=== PATIENT | male | born 1955 | race Caucasian/White ===

== ENCOUNTER 2022-06-12 09:08 | Outpatient (CLI) | payer OTHER, SELFPAY ==
[2022-06-12 14:23] LABS: Chloride* 103 mmol/L (96-114); Sodium* 139 mmol/L (135-149)
[2022-06-12 14:24] LABS: Potassium* 5.3 mmol/L (3.6-5.1)
[2022-06-12 14:26] LABS: Carbon Dioxide* 30 mmol/L (20-32); Creatinine* 0.9 mg/dL (0.5-1.5); Estimated Glomerular Filt Rate 95 ml/min
[2022-06-12 14:27] LABS: Blood Urea Nitrogen* 11 mg/dL (7-30); Calcium* 9.2 mg/dL (8.4-10.6); Glucose* 108 mg/dL (60-115)
== END 2022-06-12 09:09 | disposition home or self-care (01) ==
LOC: LONREF 09:09
PROVIDERS: PCP Family Medicine; Visit Provider Family Medicine
DX: I10 Essential (primary) hypertension (principal)
CPT/HCPCS: 80048

== ENCOUNTER 2023-05-15 09:19 | Outpatient (CLI) | payer OTHER, SELFPAY ==
--- NOTE | 2023-05-15 10:53 | W.ANESCHARGE ---
Anesthesia Charges Start Date/Time Anesthesia Start Date: 05/15/23 Anesthesia Start Time: 10:24 Stop Date/Time Anesthesia Stop Date: 05/15/23 Anesthesia Stop Time: 10:52
== END 2023-05-15 09:20 | disposition home or self-care (01) ==
PROVIDERS: PCP Family Medicine; Visit Provider Internal Medicine
DX: Z12.11 Encounter for screening for malignant neoplasm of colon (principal); K63.5 Polyp of colon
CPT/HCPCS: 00811; 45385; 88305; J2704

== ENCOUNTER 2023-06-23 08:11 | Outpatient (CLI) | payer OTHER, SELFPAY | END 2023-06-23 08:12 | disposition home or self-care (01) | PROVIDERS: PCP Family Medicine; Visit Provider Family Medicine | DX: Z00.00 Encounter for general adult medical examination without abnormal findings (principal); I10 Essential (primary) hypertension; E78.5 Hyperlipidemia, unspecified; E66.9 Obesity, unspecified; E88.810 Metabolic syndrome; Z12.5 Encounter for screening for malignant neoplasm of prostate | CPT/HCPCS: 80053; 80061; 84153 ==

== ENCOUNTER 2024-04-20 06:24 | Inpatient (IN) | payer OTHER, SELFPAY ==
--- NOTE | 2024-04-20 06:33 | CRLHL7_ITS ---
For Patients: As a result of the Century Cures Act, medical imaging exams and procedure reports are released immediately into your electronic medical record. You may view this report before your referring provider. If you have questions, please contact your health care provider. Indication: Dyspnea. Technique: One view(s) of the chest. Comparison: None available. Findings: Mildly enlarged cardiomediastinal silhouette. Pulmonary vasculature is unremarkable. Lungs are well inflated. Possible hazy opacity within the medial right lung base. No pleural effusion or pneumothorax. No acute osseous abnormality identified. Impression: Mild cardiomegaly. Possible hazy airspace opacities in the medial right lung base may be artifactual secondary to technique versus atelectasis or developing pneumonia. Dictated by Audrey Lee MD @ 04/20/2024 7:10:51 AM (Electronically Signed)
[2024-04-20] MEDS: IPRAT-ALBUT 0.5-2.5 MG/3 ML NEB 1 NEB IH (06:35)
--- NOTE | 2024-04-20 06:35 | ED.GENADULT ---
HPI - General Adult General Time Seen by Provider: 06:35 <Ren Romero MD - Last Filed: 04/20/24 07:55> Date Seen: 04/20/24 <Ren Romero MD - Last Filed: 04/20/24 07:55> Chief complaint: Shortness of Breath/Dyspnea <Ren Romero MD - Last Filed: 04/20/24 07:55> Stated complaint: Hard time breathing <Ren Romero MD - Last Filed: 04/20/24 07:55> Time Seen by Provider: 04/20/24 06:29 <Ren Romero MD - Last Filed: 04/20/24 07:55> Source: patient, family, RN notes reviewed and old records reviewed <Ren Romero MD - Last Filed: 04/20/24 07:55> Mode of arrival: ambulatory <Ren Romero MD - Last Filed: 04/20/24 07:55> Limitations: no limitations <Ren Romero MD - Last Filed: 04/20/24 07:55> History of Present Illness HPI narrative: 69-year-old male who comes in with shortness of breath. Patient notes some nasal congestion for couple of days, went to bed last night feeling okay but woke up this morning with shortness of breath. Slight cough. Denies chest pain, nausea, vomiting. Some mild ankle swelling which he says is chronic for him. Has not taken anything for this. Denies smoking. <Ren Romero MD - Last Filed: 04/20/24 07:55> Related Data Home medications: Home Medications ?Medication ?Instructions ?Recorded ?Confirmed metformin 750 mg tablet,extended 1,500 mg PO HS 04/20/24 04/20/24 release 24 hr Previous Rx's ?Medication ?Instructions ?Recorded furosemide 20 mg tablet 20 - 40 mg (1 - 2 x 20 mg) PO 06/23/23 DAILY #180 tabs lisinopril 20 mg tablet 20 mg PO DAILY #90 tabs 06/23/23 <Ren Romero MD - Last Filed: 04/20/24 07:55> Allergies/adverse reactions: Allergies Allergy/AdvReac Type Severity Reaction Status Date / Time No Known Drug Allergies Allergy Verified 09/26/23 11:25 <Ren Romero MD - Last Filed: 04/20/24 07:55> [facility] Medical History: Medical History (Updated 04/20/24 @ 10:54 by Renea Hester MD) Family history of ASCVD ?Z82.49 - Family history of ischemic heart disease and other diseases of the circulatory system (ICD-10) Right knee DJD ?M17.11 - Unilateral primary osteoarthritis, right knee (ICD-10) Varicose veins of lower extremity (04/17/12) ?I83.90 - Asymptomatic varicose veins of unspecified lower extremity (ICD-10) Dyslipidemia ?E78.5 - Hyperlipidemia, unspecified (ICD-10) Obesity (04/17/12) ?E66.9 - Obesity, unspecified (ICD-10) Metabolic syndrome ?E88.81 - Metabolic syndrome (ICD-10) <Ren Romero MD - Last Filed: 04/20/24 07:55> Surgical History: Surgical History H/O varicose vein ligation and stripping ?Z98.890 - Other specified postprocedural states (ICD-10) Status post arthroscopy of right knee (04/17/12) ?Z98.890 - Other specified postprocedural states (ICD-10) <Ren Romero MD - Last Filed: 04/20/24 07:55> Social History: Social History Smoking Status: Never smoker Little interest or pleasure in doing things: not at all Feeling down, depressed, or hopeless: not at all <Ren Romero MD - Last Filed: 04/20/24 07:55> Exam Narrative: Exam Narrative: General: Well-developed and well-nourished, no acute distress Head: Atraumatic and normocephalic Eyes: Pupils are equal reactive, extraocular motions intact, conjunctiva clear ENT: External nose and ears are normal, posterior pharynx without erythema or exudate Neck: No midline cervical tenderness, full spontaneous range of motion the neck, trachea midline, no adenopathy Heart: Tachycardic and irregular Lungs: Tachypnea with increased work of breathing, prolonged expiratory phase, poor air movement throughout Abdomen: Soft, nontender, nondistended with active bowel sounds Musculoskeletal: Trace bilateral lower extremity edema Neurologic: Awake, alert, and oriented x3, no gross focal neurologic deficits, cranial nerves intact as tested Psych: Mood and affect are appropriate Skin: No rashes <Ren Romero MD - Last Filed: 04/20/24 07:55> Const: Vital Signs, click to edit/add: Vital Signs - 24 hr 04/20/24 07:00 Temperature 98.0 F Pulse Rate [Pulse Oximeter] 132 H Respiratory Rate 32 H Blood Pressure [Ri ght Upper Arm] 153/85 H Pulse Oximetry 83 L Oxygen Delivery Me thod Room Air <Ren Romero MD - Last Filed: 04/20/24 07:55> Vital Signs, click to edit/add: Vital Signs - 24 hr 04/20/24 07:00 Temperature 98.0 F Pulse Rate [Pulse Oximeter] 132 H Respiratory Rate 32 H Blood Pressure [Ri ght Upper Arm] 153/85 H Pulse Oximetry 83 L Oxygen Delivery Me thod Room Air <Genevieve Melton MD - Last Filed: 04/20/24 11:28> Course Course ED Course: Patient seen and examined immediately on arrival, presents with shortness of breath. On initial evaluation, tachypnea with prolonged expiratory phase, poor air movement, no wheezes or crackles. Labs ordered along with DuoNeb, patient was placed on BiPAP. Symptoms are likely related to acute bronchitis, consider also pneumonia, heart failure. Did consider pulmonary embolism but patient has poor air movement with diminished breath sounds throughout which is more consistent with a pulmonary problem versus vascular Reviewed prior record and from 09/26/2023 patient was seen in Primary Care, upper respiratory symptoms that time and started on prednisone. <Ren Romero MD - Last Filed: 04/20/24 07:55> Reevaluation(s) Time of Reevaluation #1: 06:58 <Ren Romero MD - Last Filed: 04/20/24 07:55> Reevaluation #1: Patient appears much more comfortable on BiPAP. <Ren Romero MD - Last Filed: 04/20/24 07:55> Time of Reevaluation #2: 07:23 <Ren Romero MD - Last Filed: 04/20/24 07:55> Reevaluation #2: Labs independently interpreted by me with leukocytosis, white blood cell count 14.6 with hemoglobin 12.6, venous blood gas with pH of 7.335 and pCO2 of 57, likely representing acute on chronic respiratory failure with hypercapnia, there may be a Pickwickian component as well. Chest x-ray independently interpreted by me with questionable of infiltrate in the right lung base, radiology interpretation agrees. CT scan will be done and as D-dimer still pending, CT PE protocol will be performed. EKG independently interpreted by me performed at 6:43 a.m. demonstrates sinus rhythm with occasional PVCs, no acute ST elevations or depressions, rate 92, CT 180, QTC 492. No prior for comparison <Ren Romero MD - Last Filed: 04/20/24 07:55> Time of Reevaluation #3: 07:53 <Ren Romero MD - Last Filed: 04/20/24 07:55> Reevaluation #3: Labs independently interpreted by me with negative respiratory panel, negative D-dimer, BNP 10 40. Patient taken off BiPAP to go to CT scan and for trial off BiPAP. Sign out to oncoming provider <Ren Romero MD - Last Filed: 04/20/24 07:55> Vital Signs Vital signs: Initial Vital Signs Respiratory Effort Labored, Short of Breath, Abdominal Breathing, Tachypnea 04/20/24 06:40 Respiratory Depth Shallow 04/20/24 06:40 Vital Signs Temperature 98.0 F 04/20/24 07:00 Pulse Rate 132 H 04/20/24 07:00 Respiratory Rate 32 H 04/20/24 07:00 Blood Pressure 153/85 H 04/20/24 07:00 Pulse Oximetry 83 L 04/20/24 07:00 Oxygen Delivery Method Room Air 04/20/24 07:00 Temperature 98.0 F 04/20/24 07:00 Pulse Rate 132 H 04/20/24 07:00 Respiratory Rate 32 H 04/20/24 07:00 Blood Pressure 153/85 H 04/20/24 07:00 Pulse Oximetry 83 L 04/20/24 07:00 Oxygen Delivery Method Room Air 04/20/24 07:00 <Ren Romero MD - Last Filed: 04/20/24 07:55> Initial Vital Signs Respiratory Effort Labored, Short of Breath, Abdominal Breathing, Tachypnea 04/20/24 06:40 Respiratory Depth Shallow 04/20/24 06:40 Vital Signs Temperature 98.0 F 04/20/24 07:00 Pulse Rate 132 H 04/20/24 07:00 Respiratory Rate 32 H 04/20/24 07:00 Blood Pressure 153/85 H 04/20/24 07:00 Pulse Oximetry 83 L 04/20/24 07:00 Oxygen Delivery Method Room Air 04/20/24 07:00 Temperature 98.0 F 04/20/24 07:00 Pulse Rate 132 H 04/20/24 07:00 Respiratory Rate 32 H 04/20/24 07:00 Blood Pressure 153/85 H 04/20/24 07:00 Pulse Oximetry 83 L 04/20/24 07:00 Oxygen Delivery Method Room Air 04/20/24 07:00 <Genevieve Melton MD - Last Filed: 04/20/24 11:28> Medications Administered Medications: Discontinued Medications Generic Name Dose Route Start Last Admin Trade Name Freq PRN Reason Stop Dose Admin Albuterol/Ipratropium 1 neb 04/20/24 06:33 04/20/24 06:35 Iprat-Albut 0.5-2.5 Mg/3 Ml [facility] 04/20/24 06:34 1 neb ONCE ONE Administration Dexamethasone 10 mg 04/20/24 06:34 04/20/24 06:45 Dexamethasone 10 Mg/Ml Inj IVP 04/20/24 06:35 10 mg ONCE ONE Administration Furosemide 80 mg 04/20/24 10:29 04/20/24 10:56 Furosemide 10 Mg/Ml Inj IVP 04/20/24 10:30 80 mg ONCE ONE Administration <Ren Romero MD - Last Filed: 04/20/24 07:55> Discontinued Medications Generic Name Dose Route Start Last Admin Trade Name Freq PRN Reason Stop Dose Admin Albuterol/Ipratropium 1 neb 04/20/24 06:33 04/20/24 06:35 Iprat-Albut 0.5-2.5 Mg/3 Ml [facility] 04/20/24 06:34 1 neb ONCE ONE Administration Dexamethasone 10 mg 04/20/24 06:34 04/20/24 06:45 Dexamethasone 10 Mg/Ml Inj IVP 04/20/24 06:35 10 mg ONCE ONE Administration Furosemide 80 mg 04/20/24 10:29 04/20/24 10:56 Furosemide 10 Mg/Ml Inj IVP 04/20/24 10:30 80 mg ONCE ONE Administration <Genevieve Melton MD - Last Filed: 04/20/24 11:28> Medical Decision Making MDM Narrative Medical decision making narrative: I took over care of this patient from Dr. Romero. Patient has returned from the CT scan with O2 sats at rest of 89-90%. He states he is feeling better. Review of his chart notes leukocytosis at 14,000, elevated proBNP of 1070 with no previous values for comparison. Denies a history of heart problems but family history is present in his brothers. Remote history of smoking having quit 20-25 years ago. 1. Hypoxia-Dave is subjectively improved. patient at rest 89-90% with minimal movement causing decrease of O2 sats to 85%. Previous value was 96% on an office visit earlier this year. No reported history of COPD, sleep apnea, recent illness. Patient has tested negative for COVID in there is no evidence of pneumonia or PE noted on the chest CT. Initial troponin negative with 2nd troponin pending at this time. Given elevated Pro BNP patient is given Lasix 80 mg IV. 2. Obesity 3. Dilated left ventricle-no history of stress test, chest pain. Echocardiogram scheduled for 1600 hours today. 4. Disposition-patient initially wish to go home but I strongly advise against this given persisting hypoxia. I did talk to patient about his CT findings as well as the persistent hypoxia. He has changed his mind and will now be staying in the hospital. He is accepted under the care of hospitalist Dr. Hester. Note: Thyroid nodule noted on CT. This is discussed with hospitalist. <Genevieve Melton MD - Last Filed: 04/20/24 11:28> Medical Records Medical records reviewed: Yes I reviewed the patient's medical records <Genevieve Melton MD - Last Filed: 04/20/24 11:28> Lab Data Lab results reviewed: Yes I reviewed the patient's lab results <Genevieve Melton MD - Last Filed: 04/20/24 11:28> Labs: Lab Results 04/20/24 04/20/24 Range/Units 06:33 06:50 WBC 14.16 H (4.50-11.00) K/uL RBC 4.53 (4.30-5.90) m/uL Hgb 12.6 L (13.5-17.5) gm/dL Hct 40.9 (37.0-53.0) % MCV 90 (80-100) fL MCH 28 (26-34) pg MCHC 31 L (32-36) gm/dL RDW Coeff of Dinah 14.8 (11.5-15.5) % Plt Count 265 (140-440) K/uL Neut % (Auto) 71.6 (42.0-72.0) % Lymph % (Auto) 22.2 (20-44) % [place] % (Auto) 4.2 (0.0-11.0) % Eos % (Auto) 1.6 (0.0-7.0) % Baso % (Auto) 0.2 (0.0-3.0) % Neut # (Auto) 10.10 H (1.7-7.0) K/uL Lymph # (Auto) 3.10 H (0.90-2.90) K/uL [place] # (Auto) 0.60 (0.00-0.90) K/UL Eos # (Auto) 0.20 (0.00-0.50) K/uL Baso # (Auto) 0.00 (0.00-0.30) K/uL Abs Immat Gran (auto) 0.00 (0.00-0.30) K/uL Imm/Tot Granulo (auto) 0.2 % D-Dimer Quant (PE/DVT) 0.37 (0.00-0.50) ug/ml VBG pH 7.335 (7.32-7.43) VBG pCO2 57 H (40-50) mmHG VBG pO2 30.8 (25-47) mmHG VBG HCO3 30 H (21-28) mmol/L Sodium 139 (135-149) mmol/L Potassium 4.2 (3.6-5.1) mmol/L Chloride 100 (96-114) mmol/L Carbon Dioxide 29 (20-32) mmol/L Anion Gap 10 (7-15) mEq/L BUN 16 (7-30) mg/dL Creatinine 0.9 (0.5-1.5) mg/dL Estimated Creat Clear 76.35 Estimated GFR 94 ml/min Glucose 129 H (60-115) mg/dL Calcium 9.1 (8.4-10.6) mg/dL Magnesium 1.5 (1.5-2.6) mg/dL NT-Pro-B Natriuret Pep 1070 pg/mL SARS-CoV-2 (PCR) Negative SARS-CoV-2 (Negative) Influenza Type A (PCR) Negative PCR FLU A (Negative) Influenza Type B (PCR) Negative PCR FLU B (Negative) RSV (PCR) Negative PCR RSV (Negative) POC Troponin I 0.01 (0.01-0.04) ng/ml <Ren Romero MD - Last Filed: 04/20/24 07:55> Lab Results 04/20/24 04/20/24 Range/Units 06:33 06:50 WBC 14.16 H (4.50-11.00) K/uL RBC 4.53 (4.30-5.90) m/uL Hgb 12.6 L (13.5-17.5) gm/dL Hct 40.9 (37.0-53.0) % MCV 90 (80-100) fL MCH 28 (26-34) pg MCHC 31 L (32-36) gm/dL RDW Coeff of Dinah 14.8 (11.5-15.5) % Plt Count 265 (140-440) K/uL Neut % (Auto) 71.6 (42.0-72.0) % Lymph % (Auto) 22.2 (20-44) % [place] % (Auto) 4.2 (0.0-11.0) % Eos % (Auto) 1.6 (0.0-7.0) % Baso % (Auto) 0.2 (0.0-3.0) % Neut # (Auto) 10.10 H (1.7-7.0) K/uL Lymph # (Auto) 3.10 H (0.90-2.90) K/uL [place] # (Auto) 0.60 (0.00-0.90) K/UL Eos # (Auto) 0.20 (0.00-0.50) K/uL Baso # (Auto) 0.00 (0.00-0.30) K/uL Abs Immat Gran (auto) 0.00 (0.00-0.30) K/uL Imm/Tot Granulo (auto) 0.2 % D-Dimer Quant (PE/DVT) 0.37 (0.00-0.50) ug/ml VBG pH 7.335 (7.32-7.43) VBG pCO2 57 H (40-50) mmHG VBG pO2 30.8 (25-47) mmHG VBG HCO3 30 H (21-28) mmol/L Sodium 139 (135-149) mmol/L Potassium 4.2 (3.6-5.1) mmol/L Chloride 100 (96-114) mmol/L Carbon Dioxide 29 (20-32) mmol/L Anion Gap 10 (7-15) mEq/L BUN 16 (7-30) mg/dL Creatinine 0.9 (0.5-1.5) mg/dL Estimated Creat Clear 76.35 Estimated GFR 94 ml/min Glucose 129 H (60-115) mg/dL Calcium 9.1 (8.4-10.6) mg/dL Magnesium 1.5 (1.5-2.6) mg/dL NT-Pro-B Natriuret Pep 1070 pg/mL SARS-CoV-2 (PCR) Negative SARS-CoV-2 (Negative) Influenza Type A (PCR) Negative PCR FLU A (Negative) Influenza Type B (PCR) Negative PCR FLU B (Negative) RSV (PCR) Negative PCR RSV (Negative) POC Troponin I 0.01 (0.01-0.04) ng/ml <Genevieve Melton MD - Last Filed: 04/20/24 11:28> Imaging Data CT scan - chest: Attestation: I have reviewed the pertinent imaging results. <Genevieve Melton MD - Last Filed: 04/20/24 11:28> Radiologist's impression: Heart and vasculature: Contrast opacification of the pulmonary arterial tree is adequate. No sign of pulmonary embolism. Thoracic aorta normal in caliber. Prominent coronary atherosclerosis. Left ventricular dilatation. Lungs and pleural: No pleural effusion or pneumothorax. Discoid atelectasis within the right middle lobe. Lymph nodes/mediastinum: Subcentimeter mediastinal lymph nodes. 8 millimeter hypodense nodules in the right lobe of the thyroid. Chest wall: No masses. Upper abdomen: Normal. Bones: Unremarkable for age. IMPRESSION: 1. No evidence of pulmonary embolus. 2. Left ventricular dilatation suggesting left ventricular failure with moderate coronary atherosclerosis. 3. Hypodense 8 millimeter nodule within the right lobe of the thyroid. Follow-up outpatient thyroid ultrasound is suggested for further characterization. <Genevieve Melton MD - Last Filed: 04/20/24 11:28> ECG Data Attestation: I personally reviewed and interpreted this ECG as follows: <Genevieve Melton MD - Last Filed: 04/20/24 11:28> Critical Care Time Critical Care Time Critical Care Time: Yes (Acute hypoxic respiratory failure, BiPAP) Attestation: The patient required my highest level preparedness to intervene emergently and I personally spent this critical care time directly and personally managing the patient. This critical care time included: Obtaining a history; Examining the patient; Pulse oximetry; Ordering and reviewing of studies; Arranging urgent treatment with development of a management plan; Evaluation of patients response to treatment; Frequent reassessment discussions with other providers. This critical care time was performed to assess and manage the high probability of imminent life-threatening deterioration that could result in multiorgan failure. It was exclusive of separate billable procedures and treating other patients and teaching time. <Ren Romero MD - Last Filed: 04/20/24 07:55> Total Critical Care Time in Minutes: 45 <Ren Romero MD - Last Filed: 04/20/24 07:55> Discharge Plan Discharge Clinical Impression: Acute hypoxemic respiratory failure <Ren Romero MD - Last Filed: 04/20/24 07:55> Patient Disposition: Admitted As Observation <Ren Romero MD - Last Filed: 04/20/24 07:55> Condition: Improved <Ren Romero MD - Last Filed: 04/20/24 07:55>
[2024-04-20] MEDS: dexAMETHasone 10 MG/ML inj IVP (06:45)
[2024-04-20 07:00] VITALS: BP 153/85; PULSE 132; RESP 32; TEMP 36.7; O2SAT 83; BMI 46.0
[2024-04-20 07:00] LABS: HCO3 VBG 30 mmol/L (21-28); PCO2 VBG 57 mmHG (40-50); PO2 VBG 30.8 mmHG (25-47); pH VBG 7.335 (7.32-7.43)
[2024-04-20 07:03] LABS: Basophils Percent Auto 0.2 % (0.0-3.0); Eosinophils Percent Auto 1.6 % (0.0-7.0); Hematocrit 40.9 % (37.0-53.0); Hemoglobin* 12.6 gm/dL (13.5-17.5); Immature Granulocytes Pct Auto 0.2 %; Lymphocytes Percent Auto 22.2 % (20-44); Mean Corpuscular HGB Conc 31 gm/dL (32-36); Mean Corpuscular Hemoglobin 28 pg (26-34); Mean Corpuscular Volume 90 fL (80-100); Monocytes Percent Auto 4.2 % (0.0-11.0); Neutrophils Percent Auto 71.6 % (42.0-72.0); Platelet Count* 265 K/uL (140-440); RDW Coefficient of Variation % 14.8 % (11.5-15.5); Red Blood Count 4.53 m/uL (4.30-5.90); Slide Review Reflex No; White Blood Count* 14.16 K/uL (4.50-11.00)
[2024-04-20 07:06] LABS: Troponin, Point-of-Care* 0.01 ng/ml (0.01-0.04)
[2024-04-20 07:18] LABS: Chloride* 100 mmol/L (96-114)
[2024-04-20 07:19] LABS: Potassium* 4.2 mmol/L (3.6-5.1); Sodium* 139 mmol/L (135-149)
[2024-04-20 07:22] LABS: Anion Gap 10 mEq/L (7-15); Blood Urea Nitrogen* 16 mg/dL (7-30); Calcium* 9.1 mg/dL (8.4-10.6); Carbon Dioxide* 29 mmol/L (20-32); Creatinine* 0.9 mg/dL (0.5-1.5); Est. Creatinine Clearance* 76.35; Estimated Glomerular Filt Rate 94 ml/min; Glucose* 129 mg/dL (60-115)
[2024-04-20 07:23] LABS: Magnesium* 1.5 mg/dL (1.5-2.6)
--- NOTE | 2024-04-20 07:24 | CRLHL7_ITS ---
For Patients: As a result of the Century Cures Act, medical imaging exams and procedure reports are released immediately into your electronic medical record. You may view this report before your referring provider. If you have questions, please contact your health care provider. INDICATION: Dyspnea, abnormal chest x-ray TECHNIQUE: CT chest PE was acquired with 95 cc Isovue 370 intravenous contrast. COMPARISON: Chest x-ray 04/20/2024 FINDINGS: Heart and vasculature: Contrast opacification of the pulmonary arterial tree is adequate. No sign of pulmonary embolism. Thoracic aorta normal in caliber. Prominent coronary atherosclerosis. Left ventricular dilatation. Lungs and pleural: No pleural effusion or pneumothorax. Discoid atelectasis within the right middle lobe. Lymph nodes/mediastinum: Subcentimeter mediastinal lymph nodes. 8 millimeter hypodense nodules in the right lobe of the thyroid. Chest wall: No masses. Upper abdomen: Normal. Bones: Unremarkable for age. IMPRESSION: 1. No evidence of pulmonary embolus. 2. Left ventricular dilatation suggesting left ventricular failure with moderate coronary atherosclerosis. 3. Hypodense 8 millimeter nodule within the right lobe of the thyroid. Follow-up outpatient thyroid ultrasound is suggested for further characterization. Please note that all CT scans at this facility use dose modulation, iterative reconstruction, and/or weight-based dosing when appropriate to reduce radiation dose to as low as reasonably achievable. Dictated by Dionte Hays MD @ 04/20/2024 8:16:05 AM (Electronically Signed)
[2024-04-20 07:30] LABS: D Dimer Quantitative* 0.37 ug/ml (0.00-0.50)
[2024-04-20 07:32] LABS: NT Pro B Type NatriureticPept* 1070 pg/mL
[2024-04-20 07:39] LABS: PCR FLU A Negative PCR FLU A (Negative); PCR FLU B Negative PCR FLU B (Negative); PCR RSV Negative PCR RSV (Negative); SARS PCR* Negative SARS-CoV-2 (Negative)
--- NOTE | 2024-04-20 10:53 | P.IMHP_ITS ---
Hospitalist- H&P: HPI History of Present Illness Date Seen: 04/20/24 Chief complaint: Hard time breathing Narrative: Fransico Christine is a 69 year old male who presented to the emergency room this morning for dyspnea. He woke up this morning with significant shortness of breath. Has had a mild cough over the past 2 days, no other symptoms of illness. Specifically denies chest pain or fever. + bilateral lower extremity edema, chronic and unchanged. He is on 40 mg of Lasix daily and has been taking this. ER Course and Findings: - Oxygen saturation 83% on RA upon arrival with tachypnea, BiPAP initiated - troponin 0.01, no acute abnormalities on EKG - chest CTA reveals no acute infectious process or PE, mild atelectasis right middle lobe, left ventricular dilatation concerning for LV failure, incidental thyroid nodule - given 80 mg IV Lasix with improvement of oxygenation, continues to have desaturations into the mid 80%s with ambulation Given acute hypoxic respiratory failure with concern for CHF as source, patient admitted for TTE evaluation, diuresis, as needed supplemental oxygen. TTE performed soon after arrival to the floor, initial read notable for EF 35%, formal cardiology read pending. Histories updated below. PCP is Dr. Hayes. Review of Systems Status of ROS: Reports: 10 or more systems reviewed and unremarkable except as noted in History and below [facility] Medical History (Updated 04/20/24 @ 13:32 by Renea Hester MD) Metabolic syndrome ?E88.81 - Metabolic syndrome (ICD-10) Family history of ASCVD ?Z82.49 - Family history of ischemic heart disease and other diseases of the circulatory system (ICD-10) Right knee DJD ?M17.11 - Unilateral primary osteoarthritis, right knee (ICD-10) Varicose veins of lower extremity (04/17/12) ?I83.90 - Asymptomatic varicose veins of unspecified lower extremity (ICD-10) Dyslipidemia ?E78.5 - Hyperlipidemia, unspecified (ICD-10) Obesity (04/17/12) ?E66.9 - Obesity, unspecified (ICD-10) Surgical History H/O varicose vein ligation and stripping ?Z98.890 - Other specified postprocedural states (ICD-10) Status post arthroscopy of right knee (04/17/12) ?Z98.890 - Other specified postprocedural states (ICD-10) Social History (Updated 04/20/24 @ 12:18 by Renea Hester MD) Narrative: Lives with ( would be medical decision maker if needed) locally, 3 adult children. Works for [employer]. Former smoker, no concerning ETOH use. Requests Full Code Status. What is your current living situation?: I presently have a place to live Problems where you live: no known problems Problems where you live details: NA In the past 12 months, utilities in danger of being shut off: no In past 12 months, lack of transportation kept you from medical appts, meetings, work, or getting things needed for daily living: no In the past 12 mos, have been you worried that your food would run out before you had money to buy more?: never true In the past 12 mos, the food you bought just didn't last and you didn't have money to buy more?: never true Highest level of school completed/degree received: 12th grade, no diploma Smoking Status: Former smoker How often do you have a drink containing alcohol: never AUDIT-C Alcohol total score: 0 Non-prescribed substance use: denies use How often does anyone, including family, friends and others, physically hurt you : never How often does anyone, including family, friends and others, insult or talk down to you: never How often does anyone, including family, friends and others, threaten you with harm: never How often does anyone, including family, friends and others, scream or curse at you: never Little interest or pleasure in doing things: not at all Feeling down, depressed, or hopeless: not at all Meds Home Medications and Allergies Home Medications ?Medication ?Instructions ?Recorded ?Confirmed ?Type metformin 750 mg tablet,extended 1,500 mg PO HS 04/20/24 04/20/24 History release 24 hr Home Medication Comments: Lasix 40mg Qam Lisinopril 20mg daily Allergies Allergy/AdvReac Type Severity Reaction Status Date / Time No Known Drug Allergies Allergy Verified 09/26/23 11:25 Exam Narrative: Exam Narrative: GEN: Alert and oriented, sitting up in bed and speaking in full sentences HEENT: EOMIs bilaterally, no scleral icterus CV: Regular rate and rhythm with pulse in the 80s, no concerning murmurs, distant heart sounds R: No wheezing, no concerning rales, decreased bibasilar air movement Ext: 3+ pitting edema up to knees, bilateral/symmetrical Skin: No concerning skin lesions or rashes on exposed skin Neuro: No focal deficits, no resting tremor. Gait not observed Psych: Appropriate Const: Vital Signs, click to edit/add: Vital Signs - 24 hr 04/20/24 07:00 Temperature 98.0 F Pulse Rate [Pulse Oximeter] 132 H Respiratory Rate 32 H Blood Pressure [Ri ght Upper Arm] 153/85 H Pulse Oximetry 83 L Oxygen Delivery Me thod Room Air Hospitalist - H&P: Result Labs Labs: Short CBC 04/20/24 Range/Units 06:50 WBC 14.16 H (4.50-11.00) K/uL Hgb 12.6 L (13.5-17.5) gm/dL Hct 40.9 (37.0-53.0) % Plt Count 265 (140-440) K/uL BMP 04/20/24 06:50 Sodium 139 Potassium 4.2 Chloride 100 Carbon Dioxide 29 BUN 16 Creatinine 0.9 Glucose 129 H Calcium 9.1 Assessment and Plan Assessment and plan (1) Acute hypoxemic respiratory failure: Problem comment: - likely 2/2 CHF exacerbation given history and exam - TTE ordered for 04/20 to evaluate Status: Acute (2) HFrEF (heart failure with reduced ejection fraction): Problem comment: - noted on 04/20/24 TTE, formal Cardiology read pending (initial EF 35%) - will add low dose Metoprolol, change Furosemide to Torsemide, add Spironolactone; increase GDMT as tolerated Status: Acute (3) Metabolic syndrome: Problem comment: - on metformin, A1C 5.5 on 04/20/24 Status: Acute (4) Hypertension: Problem comment: - on 20mg Lisinopril as monotherapy as outpatient Status: Acute (5) Edema: Problem comment: - likely 2/2 CHF, see above Status: Acute Plan - per above
[2024-04-20] MEDS: FUROSEMIDE 10 MG/ML inj 80 MG IVP (10:56)
[2024-04-20 11:41] VITALS: BP 123/70; PULSE 82; RESP 16; TEMP 36.6; O2SAT 94; BMI 45.9
[2024-04-20 12:00] LABS: Hemoglobin A1C* 5.5 % (0-5.6)
[2024-04-20] MEDS: POTASSIUM BICARB 25 MEQ EFFERVESCENT TAB 50 MEQ PO (12:02)
[2024-04-20] MEDS: METOPROLOL SUCCINATE (XL) 25 MG TAB PO (12:02)
[2024-04-20] MEDS: PERFLUTREN LIPID MICROSPHERES 2 ML VIAL IV (13:23)
[2024-04-20 14:41] LABS: Troponin I* < 0.01 ng/mL (0.01-0.04)
[2024-04-20 15:00] VITALS: BP 110/95; PULSE 73; PULSE 89; RESP 16; TEMP 36.7; O2SAT 93
--- NOTE | 2024-04-20 18:56 | PC.NURSE ---
Pt was admitted to the floor at 1115. He is A&O, afebrile and VSS. Independent in room although he was reminded to call for assistance since he?s had episodes of dizziness at home. Pt utilizes urinal in the bathroom for accurate I&O measuring since we?re diuresing. PIV in right AC is SL and C/D/I. Bedside ECHO done today showing an EF of 35-40%. Pt denies pain, SOB, dizziness or nausea. Noted O2 desats to low 80s% while ambulating; pt has been asymptomatic. TELE reads NSR with PAC?s and PVC?s. Tolerating regular diet without issue. ?
[2024-04-20 19:00] VITALS: BP 135/59; PULSE 74; RESP 16; TEMP 37; O2SAT 92
[2024-04-20] MEDS: SODIUM CHLORIDE 0.9 % (FLUSH) 10 ML SYRINGE 5 ML IVF (20:45)
[2024-04-20] MEDS: METFORMIN ER 500 MG 1500 MG PO (20:45)
[2024-04-20 23:00] VITALS: BP 109/68; PULSE 74; PULSE 82; RESP 16; TEMP 36.5; O2SAT 88
[2024-04-21 02:23] VITALS: BP 116/63; PULSE 73; RESP 16; TEMP 36.4; O2SAT 91
--- NOTE | 2024-04-21 06:00 | PC.NURSE ---
Shift note: Pt is pleasant, alert and oriented. Ambulate independently in room. Pt had urinary frequency r/t to Laxis administration. O2>90% on RA. was with pt until 0230. About 1+ pedal edema noted. No fever. Vitally stable.
[2024-04-21 07:00] VITALS: PULSE 69
[2024-04-21 07:06] LABS: Basophils Percent Auto 0.1 % (0.0-3.0); Eosinophils Percent Auto 0.4 % (0.0-7.0); Hematocrit 40.5 % (37.0-53.0); Hemoglobin* 12.9 gm/dL (13.5-17.5); Immature Granulocytes Pct Auto 0.4 %; Lymphocytes Percent Auto 19.2 % (20-44); Mean Corpuscular HGB Conc 32 gm/dL (32-36); Mean Corpuscular Hemoglobin 29 pg (26-34); Mean Corpuscular Volume 90 fL (80-100); Monocytes Percent Auto 5.4 % (0.0-11.0); Neutrophils Percent Auto 74.5 % (42.0-72.0); Platelet Count* 297 K/uL (140-440); RDW Coefficient of Variation % 14.5 % (11.5-15.5); Red Blood Count 4.52 m/uL (4.30-5.90); White Blood Count* 20.76 K/uL (4.50-11.00)
[2024-04-21 07:13] LABS: Slide Review Reflex No
--- NOTE | 2024-04-21 07:27 | CRLHL7_ITS ---
For Patients: As a result of the Century Cures Act, medical imaging exams and procedure reports are released immediately into your electronic medical record. You may view this report before your referring provider. If you have questions, please contact your health care provider. Indication: Hypoxia Technique: Chest 2 views Comparison: Chest x-ray 04/20/2024 Findings/Impression: Cardiovascular and mediastinum: Cardiomegaly with mild aortic tortuosity and atherosclerotic calcification. Lungs and pleural spaces: Pulmonary cephalization with discoid atelectasis left lung base. Faint reticular interstitial prominence in the right lung base, question minimal edema. Bones and soft tissues: No significant findings. Dictated by Dionte Hays MD @ 04/21/2024 8:41:38 AM (Electronically Signed)
[2024-04-21 07:31] LABS: Chloride* 98 mmol/L (96-114); Potassium* 4.4 mmol/L (3.6-5.1); Sodium* 137 mmol/L (135-149)
[2024-04-21 07:33] LABS: Creatinine* 0.9 mg/dL (0.5-1.5); Est. Creatinine Clearance* 76.35; Estimated Glomerular Filt Rate 94 ml/min
[2024-04-21 07:34] LABS: Anion Gap 10 mEq/L (7-15); Blood Urea Nitrogen* 24 mg/dL (7-30); Calcium* 9.3 mg/dL (8.4-10.6); Carbon Dioxide* 29 mmol/L (20-32); Glucose* 98 mg/dL (60-115)
[2024-04-21 07:35] LABS: Magnesium* 1.7 mg/dL (1.5-2.6)
[2024-04-21 07:44] LABS: NT Pro B Type NatriureticPept* 1220 pg/mL
[2024-04-21 07:50] VITALS: BP 115/62; PULSE 68; RESP 18; TEMP 36.7; O2SAT 90
[2024-04-21] MEDS: METOPROLOL SUCCINATE (XL) 25 MG TAB PO (08:54)
[2024-04-21] MEDS: TORSEMIDE 20 MG TABLET PO (08:55)
[2024-04-21] MEDS: SPIRONOLACTONE 25 MG TABLET 50 MG PO (08:55)
[2024-04-21] MEDS: lisinopriL 5 MG TABLET PO (09:47)
[2024-04-21] MEDS: SODIUM CHLORIDE 0.9 % (FLUSH) 10 ML SYRINGE 5 ML IVF (09:48)
--- NOTE | 2024-04-21 11:13 | NUTR.NU ---
RDN with Md consult for CHF diet education. Patient admitted for congestive heart failure (CHF) Exacerbation. Past medical history includes Metabolic syndrome, Hyperlipidemia, and Obesity. Current weight 326lb 8oz; height 5ft 11in; BMI 45.5 kg/m2. Weight has been stable recently. Patient reports his weight was up to 338 lbs recently. Current diet order Regular. Meal intakes 100% since admit. RDN visited with patient and , Vijaya, whom reports he has been trying to eat leaner meats and more fruits and vegetables recently. He does not follow a specific diet at home, and has not received diet education related to CHF. RDN offered diet education related to CHF, patient and agreed. Heart healthy diet education provided. Discussed following a Mediterranean-style diet using the plate method that includes ? plate non-starchy vegetables and fruit, ? plate whole grains/starch, ? plate healthy protein (fish, poultry, legumes, nuts/seeds), and healthy fats. Discussed limiting saturated fat and sodium intake. Handouts provided to support discussion. RDN contact information provided and encouraged patient to call with questions. RDN offered for patient's diet order to be changed to Heart Healthy, however patient declined. RDN highly encouraged patient to choose foods on the Regular menu that have the red heart symbol next to them as these are foods appropriate for a Heart Healthy diet. MD informed of patient's refusal for heart healthy diet order. RDN to follow up as needed.
[2024-04-21 11:33] VITALS: BP 139/78; PULSE 88; RESP 18; TEMP 36.7; O2SAT 93
--- NOTE | 2024-04-21 13:52 | PM.DS1 ---
DS: Providers Provider Date Seen: 04/21/24 Date of admission: 04/20/24 11:27 Primary care physician: Trav Hayes MD Admitting Clinician: Renea Hester MD Consults: 04/20/24 11:26 Consult to Nutrition [CONS] Routine Comment: Reason for consult:: Nutritional Consult Comment: CHF Attending Physician on discharge: Renea Hester MD Date of Discharge: 04/28/24 DS: Diagnosis Discharge Diagnosis (1) HFrEF (heart failure with reduced ejection fraction): Status: Acute Problem details: - will add low dose Metoprolol, change Furosemide to Torsemide, add Spironolactone; increase GDMT as tolerated - TTE 04/20/24: Final Impressions: 1. Moderately increased LV size, moderately reduced function with an estimated EF of 30 - 35%. 2. There is moderate global left ventricular hypokinesis. 3. Right ventricular cavity size is normal, global systolic RV function is normal. 4. No significant valve disease detected. 5. Echo contrast was administered to enhance visualization of all left ventricular segments. (2) Metabolic syndrome: Status: Acute Problem details: - on metformin, A1C 5.5 on 04/20/24 - consider transition to Jardiance as outpatient given HFrEF (3) Acute hypoxemic respiratory failure: Status: Acute Problem details: - likely 2/2 CHF exacerbation given history and exam - also noted to have leukocytosis and atelectasis vs early infiltrate on CXR - HFrEF management and Doxycycline treatment upon outpatient (4) Hypertension: Status: Acute Problem details: - on 20mg Lisinopril as monotherapy as outpatient - decreased to 5mg, added Metoprolol, Spironolactone, Torsemide (5) Atelectasis of right lung: Status: Acute Problem details: - given associated leukocytosis, will cover with Doxycycline as an outpatient (possible early infiltrate) DS: Summary Hospital Course Hospital Course: Dave is a 69 yo male who presented to the hospital for dyspnea and acute hypoxic respiratory failure. He received IV Furosemide and was able to transition off of supplemental oxygen. TTE obtained and + for HFrEF per above. Added Metoprolol and Spironolactone, transitioned Furosemide to Torsemide. Patient tolerated medication changes well, stable on RA and requesting d/c home on 04/21/24. Close f/u scheduled with PCP, will discuss Cardiology referral at that appointment. Status at Discharge Functional status at discharge: independent ambulation Overall status at discharge: patient is progressing back to baseline Time Spent with Patient Time attestation: Total time spent providing and/or coordinating discharge services: Time spent: Greater than 30 minutes Specific discharge activities: Medication management and new Rx, patient and education Exam Narrative: Exam Narrative: GEN: Alert and oriented, sitting comfortably in bedside chair, speaking in full sentences HEENT: EOMIs bilaterally, no scleral icterus CV: RRR R: LCTA bilaterally without concerning wheezing. Fine right-sided rales noted Ext: 2+ pitting edema up to knees, slightly improved from admission Skin: No concerning skin lesions or rashes on exposed skin Neuro: Nonfocal Psych: Appropriate Const: Vital Signs, click to edit/add: Vital Signs - 24 hr 04/20/24 15:00 04/20/24 15:00 04/20/24 15:00 Temperature 98.1 F Pulse Rate 89 Pulse Rate [Pulse Oximeter] 73 73 Respiratory Rate 16 16 Blood Pressure [Le ft Arm] 110/95 H Pulse Oximetry 93 Oxygen Delivery Me thod Room Air 04/20/24 19:00 04/20/24 23:00 04/20/24 23:00 Temperature 98.6 F 97.7 F Pulse Rate Pulse Rate [Pulse Oximeter] 74 74 74 Respiratory Rate 16 16 16 Blood Pressure [Le ft Arm] 135/59 L 109/68 Pulse Oximetry 92 88 Oxygen Delivery Me thod Room Air Room Air 04/20/24 23:00 04/21/24 02:23 04/21/24 07:00 Temperature 97.6 F Pulse Rate 82 69 Pulse Rate [Pulse Oximeter] 73 Respiratory Rate 16 Blood Pressure [Le ft Arm] 116/63 Pulse Oximetry 91 Oxygen Delivery Me thod Room Air 04/21/24 07:50 04/21/24 07:50 04/21/24 11:33 Temperature 98.1 F 98.1 F Pulse Rate Pulse Rate [Pulse Oximeter] 68 68 88 Respiratory Rate 18 18 18 Blood Pressure [Le ft Arm] 115/62 139/78 Pulse Oximetry 90 93 Oxygen Delivery Me thod Room Air Room Air DS: Data Data Completed and Pending Labs on day of discharge: Labs from last 24 hours 04/21/24 04/20/24 06:28 13:56 WBC 20.76 H RBC 4.52 Hgb 12.9 L Hct 40.5 MCV 90 MCH 29 MCHC 32 RDW Coeff of Dinah 14.5 Plt Count 297 Neut % (Auto) 74.5 H Lymph % (Auto) 19.2 L [place] % (Auto) 5.4 Eos % (Auto) 0.4 Baso % (Auto) 0.1 Neut # (Auto) 15.50 H Lymph # (Auto) 4.00 H [place] # (Auto) 1.10 H Eos # (Auto) 0.10 Baso # (Auto) 0.00 Abs Immat Gran (auto) 0.10 Imm/Tot Granulo (auto) 0.4 Sodium 137 Potassium 4.4 Chloride 98 Carbon Dioxide 29 Anion Gap 10 BUN 24 Creatinine 0.9 Estimated Creat Clear 76.35 Estimated GFR 94 Glucose 98 Calcium 9.3 Magnesium 1.7 Troponin I < 0.01 L NT-Pro-B Natriuret Pep 1220 Discharge Plan Discharge Disposition: Home, Self-Care Date of Admission: 04/20/24 11:27 Attending Provider on Discharge: Renea Hester Primary Care Provider: Trav Hayes Condition: Improved Anticipated Discharge Date/Time: 04/21/24 12:01 Discharge Medications: New torsemide 20 mg Tablet 40 mg PO DAILY Qty: 60 0RF metoprolol succinate 25 mg Tablet Extended Release 24 Hr 25 mg PO DAILY Qty: 30 0RF doxycycline hyclate 100 mg capsule 100 mg PO BID Qty: 14 0RF lisinopril 5 mg Tablet 5 mg PO DAILY Qty: 30 0RF spironolactone 25 mg tablet 25 mg PO DAILY Qty: 30 0RF Rx Instructions: Please fill THIS Rx (25mg daily) Continued metformin 750 mg tablet extended release 24 hr 1,500 mg PO HS Discontinued lisinopril 20 mg tablet 20 mg PO DAILY Qty: 90 3RF furosemide 20 mg tablet 20 - 40 mg PO DAILY Qty: 180 3RF Discharge Orders: Discharge Order (Routine); Ordered 04/21/24 Ordered By: Renea Hester Patient Education: Metoprolol (By mouth), Spironolactone (By mouth), Lisinopril (By mouth), Doxycycline (By mouth), Torsemide (By mouth), Heart Failure (DC), DASH Eating Plan (DC) Additional Instructions: Med changes: STOP Your Furosemide and Lisinopril 20mg START: Lisinopril 5mg in the morning Metoprolol 25mg in the morning Torsemide 2 tablets (40mg) in the morning - if you get lightheaded or dizzy or feel like you're getting dehydrated, decrease this to 1 tab (20mg) Spironolactone 25mg in the morning Doxycycline (antibiotic) twice/day for 7 days Good idea to weigh yourself every day and bring these numbers to your appointment with Dr. Hayes. When you see him, he can put in a referral to Cardiology for followup of your heart failure. Activity Level: No strenuous activity Activity Detail: NO WORK until feeling 100% (Friday, 04/26 would be the EARLIEST) Discharge Diet: Heart Healthy (2 gm sodium, low fat) Follow Up Appointments: Trav Hayes MD [Primary Care Provider] - 04/28/24 2:30 pm ([facility] for Follow Up. ) Forms: [employer] Info Instructions
--- NOTE | 2024-04-21 14:00 | PC.NURSE ---
Discharged: Pt is pleasant, alert, oriented and vitally stable. Moves independently, is on a regular diet and room air and tolerates well. IV removed with tip intact. Discharge education given to pt and spouse. Topics discussed were medications, symptoms worsening and follow up. Discharged home with spouse at 1350.
== END 2024-04-21 13:50 | disposition home or self-care (01) | DRG 291 ==
LOC: ED 10:44 → MEDSURG 11:12
PROVIDERS: Admitting Provider Family Medicine; Emergency Provider Family Medicine; PCP Family Medicine; Visit Provider Family Medicine
DX: I11.0 Hypertensive heart disease with heart failure (principal); I50.23 Acute on chronic systolic (congestive) heart failure; J96.01 Acute respiratory failure with hypoxia; Z68.42 Body mass index [BMI] 45.0-49.9, adult; J98.11 Atelectasis; E88.810 Metabolic syndrome; Z82.49 Family history of ischemic heart disease and other diseases of the circulatory system; E78.5 Hyperlipidemia, unspecified; E66.9 Obesity, unspecified
CPT/HCPCS: 36415; 71045; 71046; 71275; 80048; 82803; 83036; 83735; 83880; 84484; 85025; 85379; 87631; 93005; 93306; 99285; 99291; A9270; J1100; J1940; Q9957; Q9967

== ENCOUNTER 2024-06-04 16:14 | Emergency (ER) | payer OTHER, SELFPAY ==
[2024-06-04 16:31] VITALS: BP 118/65; PULSE 81; RESP 22; TEMP 36.8; O2SAT 96; BMI 44.6
--- NOTE | 2024-06-04 16:43 | CRLHL7_ITS ---
For Patients: As a result of the Century Cures Act, medical imaging exams and procedure reports are released immediately into your electronic medical record. You may view this report before your referring provider. If you have questions, please contact your health care provider. Indication: bilateral leg swelling Technique: Real-time longitudinal and transverse sonographic grayscale imaging with and without compression, as well as color and duplex Doppler imaging before and after augmentation, was obtained of the deep system of the bilateral lower extremities, including the common femoral, femoral, popliteal, posterior tibial, and peroneal veins. Comparison: None. Findings: Right lower extremity: Common femoral vein: No evidence of thrombus. Femoral vein: No evidence of thrombus. Popliteal vein: No evidence of thrombus. Calf veins: Patent. Left lower extremity: Common femoral vein: No evidence of thrombus. Femoral vein: No evidence of thrombus. Popliteal vein: No evidence of thrombus. Calf veins: Patent. Impression: No ultrasound evidence of deep venous thrombosis. Dictated by Anthony Queen MD @ 06/04/2024 5:48:58 PM (Electronically Signed)
--- OUTSIDE RECORDS SUMMARY | 2024-06-04 16:49 | XMS_ITS | Clinical Summary ---
Author Organization [facility] Address [place], [place] [address] Care Team Providers Care Rehabilitation Manager Name Role Phone Trav Mccord MD Primary Care Provider [phone] Allergies No known active allergies Medications Medication Sig Dispensed Refills Start Date End Date Status lisinopriL (PRINIVIL; ZESTRIL) 5 mg tabletIndications:Sy stolic heart failure, unspecified HF chronicity (HC) Take 1 Tablet (5 mg) by mouth once daily. 4 Active spironolactone (ALDACTONE) 25 mg tabletIndications:Sy stolic heart failure, unspecified HF chronicity (HC) Take 1 Tablet (25 mg) by mouth once daily. 4 Active torsemide (DEMADEX) 20 mg tabletIndications:Sy stolic heart failure, unspecified HF chronicity (HC) Take 1 Tablet (20 mg) by mouth once daily. 4 Active metFORMIN (GLUCOPHAGE XR) 750 mg Extended-Release tabletIndications:Sy stolic heart failure, unspecified HF chronicity (HC) Take 2 Tablets (1,500 mg) by mouth once daily with evening meal. 4 Active apixaban (ELIQUIS) 5 mg tabletIndications:pr event thromboembolism in chronic atrial fibrillation Take 1 Tablet (5 mg) by mouth two times daily. 60 Tablet 11 4 Active rosuvastatin (CRESTOR) 20 mg tabletIndications:Ca rdiovascular symptoms,Coronary artery disease, unspecified vessel or lesion type, unspecified whether angina present, unspecified whether [place] or transplanted heart Take 1 Tablet (20 mg) by mouth at bedtime. 30 Tablet 11 4 Active metoprolol succinate (TOPROL XL) 50 mg sustained-release tabletIndications:CH F (congestive heart failure), NYHA class II, chronic, combined (HC) Take 1 Tablet (50 mg) by mouth once daily. 4 Active metoprolol succinate (TOPROL XL) 50 mg sustained-release tabletIndications:Sy stolic heart failure, unspecified HF chronicity (HC) Take 1 Tablet (50 mg) by mouth once daily. 90 Tablet 3 4 05/17/20 24 Discontinued(*IP Discontinued) aspirin (ECOTRIN) 81 mg enteric coated tabletIndications:Sy stolic heart failure, unspecified HF chronicity (HC) Take 1 Tablet (81 mg) by mouth once daily with a meal. 4 05/17/20 24 Discontinued(*IP Discontinued) metoprolol tartrate (LOPRESSOR) 50 mg tabletIndications:Ty pical atrial flutter (HC) Take 1 Tablet (50 mg) by mouth two times daily. 60 Tablet 1 4 05/17/20 24 Discontinued(*IP Discontinued) metoprolol tartrate (LOPRESSOR) 50 mg tabletIndications:Ca rdiovascular symptoms,Typical atrial flutter (HC) Take 1 Tablet (50 mg) by mouth two times daily. 60 Tablet 11 4 05/27/20 24 Discontinued(*IP Discontinued) metoprolol succinate (TOPROL XL) 50 mg sustained-release tabletIndications:CH F (congestive heart failure), NYHA class II, chronic, combined (HC) Take 1 Tablet (50 mg) by mouth once daily. 90 Tablet 3 4 05/27/20 24 Discontinued Active Problems Problem Noted Date Diagnosed Date CHF (congestive heart failur e), NYHA class II, chronic, combined 05/17/2024 Atrial fib/flutter, transient 05/17/2024 Encounters Date Type Department Care Team Description 05/26/2024 6:40 PM CDT Anesthesia Event [facility] [address] [place] [address] Lupillo Rodriguez CRNA Desa, Tenzin, MD 05/26/2024 10:31 AM CDT - 05/27/2024 1:00 PM CDT Hospital Encounter [facility] [address] [place] [address] Harlan Duckworth MD Bernard-Riley, Walesia Kadesha, CRNA Teague, Kathryn, DO CHF (congestive heart failure), NYHA class II, chronic, combined (HC) (Primary Dx); Atrial fib/flutter, transient (HC) Discharge Disposition: Home Self Care 05/26/2024 Travel 05/19/2024 Telephone [facility] [address] [facility] [address] [place] [address] Anna Gallardo RN 05/17/2024 8:00 AM CDT - 05/17/2024 3:00 PM CDT Hospital Encounter [facility] [address] [place] [address] Joe Jay MD Typical atrial flutter (HC) (Primary Dx); Cardiovascular symptoms; Coronary artery disease, unspecified vessel or lesion type, unspecified whether angina present, unspecified whether [place] or transplanted heart Discharge Disposition: Home Self Care 05/17/2024 Travel 04/29/2024 10:00 AM CDT Office Visit [facility] [address] [place] [address] Morteza Haddad MD Consult 04/29/[address] [place] [address] Morteza Haddad MD Testing 04/29/2024 Travel 04/20/2024 4:00 PM CDT Ancillary Procedure [facility] [address] [place] [address] from Last 3 Months Social History Tobacco Use Types Packs/Day Years Used Date Smoking Tobacco: Former Alcohol Use Standard Drinks/Week Comments No 0 (1 standard drink = 0.6 oz pur e alcohol) Sex and Gender Information Value Date Recorded Sex Assigned at Not on file Gender Identity Not on file Sexual Orientation Not on file Obstetrics History Last Filed Vital Signs Vital Sign Reading Time Taken Comments Blood Pressure 136/76 05/27/2024 7:38 AM CDT Pulse 71 05/27/2024 9:28 AM CDT Temperature 36.3 ??C (97.4 ??F) 05/27/2024 7:38 AM CD T Respiratory Rate 12 05/27/2024 7:38 AM CDT Oxygen Saturation 95% 05/27/2024 7:38 AM CDT Inhaled Oxygen Concentration - - Weight 146.5 kg (323 lb) 05/26/2024 1:10 PM CDT Height 180.3 cm (5' 11) 05/26/2024 1:10 PM CDT Body Mass Index 45.05 05/26/2024 1:10 PM CDT Plan of Treatment Upcoming Encounters Date Type Department Care Team (Late st Contact Info) Description 06/21/2024 10:00 AM SUPERVISOR DECORATING [facility] [address] [facility] [address] [place] [address] Deisy Rosa, ROBERT [address] [facility] [address] [place], [place] [id number] Health Maintenance Due Date Last Done Comments Pneumococcal series for age 65+ (1 of 2 - PCV) 963 Tdap 02/28/1968 Depression screening for age 12+ 1969 BMI (ht and wt on same day) for age 18+ 1975 Hepatitis C screening for age 18-79 1975 Tetanus booster 1977 Colonoscopy through age 75 2002 Lipids for age 45-75 2002 Zoster (shingles) series for age 50+ (1 of 2) 02/28/20 07 AAA screening age 65-74 2022 Medicare Wellness for age 65+ 2022 COVID-19 vaccine series ( season) Influenza for age 65+ 03/28/2024 Procedures Procedure Name Priority Date/Time Associated Diagnosis Comments SCAN CORRESP-EKG RESULTS 05/27/2024 11:53 AM CDT SCAN-CARDIAC STRIP 05/27/2024 9: 28 AM CDT EKG 12 LEAD Early AM 05/27/2024 8:15 AM CDT SCAN-CARDIAC STRIP 05/27/2024 12 :43 AM CDT CV PROCEDURE TO BE PERFORMED Routine 05/26/2024 8:21 PM CDT EP OTHER PROCEDURE Routine 05/26/2024 7: 11 PM CDT CBC W PLT NO DIFF Preop 05/26/2024 1:3 6 PM CDT BASIC METABOLIC PANEL Preop 05/26/2024 1:36 PM CDT EKG 12 LEAD Preop 05/26/2024 1:13 PM CDT CVL CORONARY ANGIOGRAM POSS PCI Routine 05/17/2024 10:55 AM CDT Cardiovascular symptoms CBC W PLT NO DIFF CHRISTIANO 05/17/2024 8:3 6 AM CDT BASIC METABOLIC PANEL CHRISTIANO 05/17/2024 8:36 AM CDT EKG 12 LEAD CHRISTIANO 05/17/2024 8:20 AM CDT ECHO TTE COMPLETE W CONTRAST Routine 04/20/2024 1:03 PM CDT Hypoxia from Last 3 Months Results * SCAN CORRESP-EKG RESULTS (05/27/2024 11:53 AM CDT) Narrative 05/27/2024 11:53 AM CDT Ordered by an unspecified provider. Other Clinical Staff OTHER * SCAN-CARDIAC STRIP (05/27/2024 9:28 AM CDT) Scanner OTHER * EKG (05/27/2024 8:15 AM CDT) Only the most recent of3 resultswithin the time period is included. Interpretation Normal sinus rhythm Possible Anterior infarct , age undetermined Abnormal ECG When compared with ECG of 26-May-2024 13:13, No significant change was found BEYOND NOW Ventricular Rate 63 BPM BEYOND NOW Atrial Rate 63 BPM BEYOND NOW P-R Interval 188 ms BEYOND NOW QRS Duration 100 ms BEYOND NOW QT 444 ms BEYOND NOW QTc 454 ms BEYOND NOW P Logan -17 degrees BEYOND NOW R Logan 6 degrees BEYOND NOW T Logan 15 degrees BEYOND NOW 05/27/2024 8:15 AM CDT 05/27/2024 5:19 PM CDT Harlan Duckworth MD EKG ORD BEYOND NOW [place], [place] * SCAN-CARDIAC STRIP (05/27/2024 12:43 AM CDT) Scanner OTHER * EP Procedure to be Performed (05/26/2024 8:21 PM CDT) Narrative Harlan uDckworth MD - 05/26/2024 8:21 PM CDT Harlan Duckworth MD ? 05/26/2024 ??8:22 PM Cardiac Electrophysiology Immediate Post Procedure Note Preoperative Diagnosis: ??Atrial flutter, typical Procedure: ??successful CTI line ablation Findings/Conclusions: ??successful ablation for typical atrial flutter Postoperative Diagnosis: ??Same as preoperative diagnosis Complications: ??None Personally monitored patient with conscious sedation during procedure: No Estimated Blood Loss: ??minimal Specimen: ??N/A Plan: Bedrest for 3 hours post sheath removal Resume anticoagulation Discharge tomorrow Surgeon: Harlan Duckworth MD Harlan Duckworth MD ADHESIVE BANDAGE MAKING OPERATOR ORD * EP OTHER PROCEDURE (05/26/2024 7:11 PM CDT) Anatomical Region Laterality Modality X-Ray Angiograph y, X-Ray Angiography 05/26/2024 7:11 PM CDT Narrative Transcriptions Harlan Duckworth MD - 05/30/2024 7:10 PM CST [facility] Electrophysiology Procedure/Implant Report Name: NGOZI Walls REJI Event Date: 05/26/2024 [facility] ID #: [id number] Date: 1955 Gender: Male Age: 69 [facility] #: [id number] Procedure Performed By: HARLAN DUCKWORTH ReferringPhysician: Summary / Conclusions ARRHYTHMIA * Spontaneous typical atrial flutter with successful ablation. CONDUCTION * The AV node conduction is normal. * The His/Purkinje system conduction is normal. POST ABLATION * Patient observed for at least 30 minutes post ablation, prior tocatheter removal. DISCUSSION * ICE Catheter utilized during procedure. VASCULAR ACCESS * Using ultrasound guidance and a percutaneous technique, the rightfemoral vein was accessed. Ultrasound was used to confirm vessel patency,localizing needle into the lumen of the vessel. For safety purposes, apicture was saved for the medical record. Pre-Operative Diagnosis ? Atrial Flutter, Typical Post-Operative Diagnosis ? Same as Pre-operative diagnosis Indications ? Same as Pre-operative diagnosis Brief Patient History Typical atrial flutter -new diagnosis 05/17/2024 NSVT -noted on telemetry while in atrial flutter 05/17/2024 Hypertension Diabetes mellitus type 2 RECOMMENDATIONS 1. Not currently for cardio-embolic prevention. Would recommend startingEliquis 5 mg BID 1 day after angiogram. Covered by insurance - $47 permonth -[id number] VASc score 3 (htn, DM2, age 69) 2. Ok to proceed with coronary angiogram from an EP perspective 3. Transition to Metoprolol tartrate 50 mg BID for rate control we cantransition him back to the metoprolol succinate for neurohormonalinhibition for chronic systolic heart failure after the ablationprocedure 4. Would recommend MERCED with aflutter ablation -Scheduled for 05/26/2024 5. EP will arrange for ablation soon. Reviewed in detail indications, risks and benefits of EPS and ablation.Risks include, but are not limited to, potential recurrence of arrhythmia,bleeding, cardiac perforation, remote risk of need for ablation near thenormal conduction system that can be associated with damage and the needfor pacemaker placement, stroke and myocardial infarction. Rarelyablations near the lungs can result in diaphragm paralysis. Patientverbalized understanding and wishes to proceed. Thank you for requesting a Cardiac Electrophysiology Consultation on . The opportunity to assist with Dave's care is much appreciated. Consent & Calder Protocol Calder protocol was followed. TIME OUT conducted just prior tostarting procedure confirmed patient identity, site/side, procedure,patient position, and availability of correct equipment and implants (ifapplicable). The risks, benefits, and alternatives of the procedure were discussed withthe patient and written informed consent was obtained. Procedure Description The patient arrived to the EP laboratory. Informed consent was affirmedand a time-out was performed with the necessary participants. The patientwas placed under anesthesia. The patient was prepped and draped in theusual fashion and local anesthetic was infiltrated into the groin site;sheaths were placed in the right femoral vein with ultrasound guidanceover guidewires. A CS catheter and ICE catheter were advanced into the RA.The Eqlim electro-anatomical mapping system was used to create geometryand voltage of the right atrium and we ablated along the cavo-tricuspidisthmus establishing bidirectional block across the cavo-tricuspid isthmusas verified by differential atrial pacing. This persisted during theremainder of the procedure. Antegrade AV conduction and HV intervals werenormal. Sheaths were pulled using manual pressure to achieve hemostasis.The patient tolerated the procedure well and there were no immediatecomplications. Electrophysiology Study Data Basic Intervals Study State Underlying Rhythm Cycle Length VT PA AH HV QRS Logan QRSMorphology Baseline NSR 706 184 65 59 Post Ablation NSR 706 172 Ablation Data Atrial Flutter Energy Source Ablation Catheter Used Rhythm During Ablation # of AttemptsMax Monge Max Temp. Result RF TactiFlex NSR 32 40 26 Success Cavotricuspid isthmus ablation was performed. (Pre) (Post) CS-ABL Site: 77 180 Bidirectional block was demonstrated across the ablation line. Comments: Total Ablation Time: 401 seconds Catheter Use Catheter Type Catheter Description Insertion Site Intracardiac Site SheathSize Sheath Type Sheath Description Diagnostic 2-5-2mm spacing, 1mm tip, Large curve, Inquiry DecapolarSteerable EP Cath Right Femoral Vein CS 7F Standard Sidearm Ablation Bi-D Irrigated Ablation Catheter, D-F Curve Right Femoral VeinMap/Abl 8.5F Guide SRO Diagnostic Acuson AcuNav Diagnostic Ultrasound Catheter Right Femoral VeinHRA 9F Standard Sidearm Procedure(s) Performed ? SVT Ablation ? Intracardiac Echocardiography ? Site-Rite Ultrasound used for vascular access ? CS/LA Catheter pace/recording ? 3D Mapping Auxiliary Device Intracardiac Echo Used: Yes Mapping System 1: HAYDEN Navix Procedure Detail Estimated Blood Loss: < 50 ml Specimen Collected: None Level of Sedation Achieved: See Anesthesia Note Total Flouro Time: 3.4 SOURCING ENGINEER Fluoro Dose Plane A: 84 mGy Staff Name Role Harlan Duckworth Microbiology Coordinator Erin Vasques RN Nurse Dakota Vasquez EPT Monitor Jill Arango CAB STATION ATTENDANT Scrub Soham Lakhani CRNA QC LAB TECHNICIAN Medications Ordered and Administered Start Time Stop Time Medication Dose Units Route Ordered By Given By 19:11 0.25% Bupivicaine 5 mL Subcut MD Harlan Ford MD 19:11 1% Lidocaine Hydrochloride 5 mL Subcut MD Harlan Ford MD The anesthesia service monitored the patient?s conscious sedation duringthe procedure. The medications listed above were verbally ordered by me and read back tome as documented above. Refer to the hemodynamic procedure log report for additional casedetails. electronically signed on 05/30/2024 7:10:06 PM with status of Final Harlan Duckworth MD Microbiology Coordinator [address] [place] [address] (p) [phone](f) Harlan Duckworth MD CV IMAGING * (ABNORMAL) CBC with Platelet no Diff (05/26/2024 1:36 PM CDT) Only the most recent of2 resultswithin the time period is included. WHITE BLOOD COUNT 14.9(H) 4.5 - 11.0 thou/cu mm 05/26/2024 1:55 PM CDT [facility] RED BLOOD COUNT 3.99(L) 4.30 - 5.90 mil/cu mm 05/26/2024 1:55 PM CDT [facility] HEMOGLOBIN 11.2(L) 13.5 - 17.5 g/dL 05/26/2024 1:55 PM CDT [facility] HEMATOCRIT 34.8(L) 37.0 - 53.0 % 05/26/2024 1:55 PM CDT [facility] MCV 87 80 - 100 fL 05/26/2024 1:55 PM CDT [facility] MCH 28.1 26.0 - 34.0 pg 05/26/2024 1:55 PM CDT [facility] MCHC 32.2 32.0 - 36.0 g/dL 05/26/2024 1:55 PM CDT [facility] RDW 14.6 11.5 - 15.5 % 05/26/2024 1:55 PM CDT [facility] PLATELET COUNT 236 140 - 440 thou/cu mm 05/26/2024 1:55 PM CDT [facility] MPV 8.8 6.5 - 11.0 fL 05/26/2024 1:55 PM CDT [facility] NRBC 0.0 % 05/26/2024 1:55 PM CDT [facility] ABS NRBC 0.0 thou /cu mm 05/26/2024 1:55 PM CDT [facility] Blood BLOOD SPECIMEN / Unknown Butterfly / Unknown 05/26/2024 1:36 PM CDT 05/26/2024 1:47 PM CDT Harlan Duckworth MD HEMATOLOGY [facility] [address] [place] [address], * Basic Metabolic Panel (05/26/2024 1:36 PM CDT) Only the most recent of2 resultswithin the time period is included. SODIUM 142 136 - 145 mmol/L 05/26/2024 2:20 PM CDT [facility] POTASSIUM 3.8 3.5 - 5.1 mmol/L 05/26/2024 2:20 PM CDT [facility] CHLORIDE 106 98 - 107 mmol/L 05/26/2024 2:20 PM CDT [facility] CO2,TOTAL 25 22 - 29 mmol/L 05/26/2024 2:20 PM CDT [facility] ANION GAP 11 5 - 18 05/26/2024 2:20 PM CDT [facility] GLUCOSE 96 70 - 99 mg/dL 05/26/2024 2:20 PM CDT [facility] CALCIUM 8.8 8.8 - 10.2 mg/dL 05/26/2024 2:20 PM CDT [facility] BUN 13 8 - 23 mg/dL 05/26/2024 2:20 PM CDT [facility] CREATININE 0.88 0.70 - 1.20 mg/dL 05/26/2024 2:20 PM CDT [facility] BUN/CREAT RATIO 15 10 - 20 2:20 PM CDT [facility] eGFR >90 >90 mL/min/1.7 3m2 05/26/2024 2:20 PM CDT [facility] Comment:As of 2021, eG FR is calculated by the CKD-EPI creatinine equation without race adjustment. ??eGFR can be influenced by muscle mass, exercise, and diet. ??The reported eGFR is an estimation only and is only applicable if the renal function is stable. Blood BLOOD SPECIMEN / Unknown Butterfly / Unknown 05/26/2024 1:36 PM CDT 05/26/2024 1:47 PM CDT Harlan Duckworth MD CHEMISTRY [facility] [address] [place] [id number], * CVL CORONARY ANGIOGRAM POSS PCI (05/17/2024 10:55 AM CDT) Anatomical Region Laterality Modality X-Ray Angiograph y, X-Ray Angiography 05/17/2024 10:5 5 AM CDT Narrative Transcriptions Joe Jay MD - 05/17/2024 1:36 PM CDT [facility] Cardiac Catheterization Report Name: NGOZI MENDOZA Event Date: 05/17/2024 10:55 Kenna ID #: [id number] [facility] #: [id number] Patient Class: Outpatient Diagnostic Physician: JOE JAY [facility] Referring Physician: Primary Care Physician: TRAV MCCORD Date: 1955 Gender: Male Age: 69 Summary/Conclusions PRESENTATION / INDICATIONS * Congestive Heart Failure - Highest NYHA Class w/in 2 - NYHA Class II * Low EF 35% * New diagnosis of atrial flutter * Morbid obesity VASCULAR ACCESS * Using ultrasound guidance and a percutaneous technique, the right radialartery was accessed. Ultrasound was used to confirm vessel patency,localizing needle into the lumen of the vessel. An image was saved for themedical record. DIAGNOSTIC - CORONARY * Right dominant coronary artery system DIAGNOSTIC SUMMARY ? The LMCA is free of significant disease. ? The LAD has mild luminal irregularities. ? 30% stenosis in the Proximal LAD ? The Circumflex is non-dominant and is free of significant disease. ? The RCA is dominant and has mild luminal irregularities. RECOMMENDATIONS & PLAN * Medical Rx for mild CAD * Optimize treatment for CHF * Optimize treatment for reduced LV systolic function * Atrial flutter ablation next week with Dr Fermin * LENA assessment * Weight management program Consent & Calder Protocol The risks, benefits, and alternatives of the procedure were discussed withthe patient and written informed consent was obtained. Calder protocol was followed. TIME OUT conducted just prior tostarting procedure confirmed patient identity, site/side, procedure,patient position, and availability of correct equipment and implants (ifapplicable). Staff Name Title JOE JAY Diagnostic Deck Mechanic Castillo Arriaga Fellow Vanda Ferraro RN Nurse Emerson Vigil CVT Scrub Mehul Titus CVT Monitor Mei Torres SHIP PROPELLER FINISHER Monitor Diagnostic Findings * Left Main Coronary Artery ? The LMCA is free of significant disease. * Left Anterior Descending ? The LAD has mild luminal irregularities. ? 30% stenosis in the Proximal LAD. * Circumflex ? The Circumflex is non-dominant and is free of significant disease. * Right Coronary Artery ? The RCA is dominant and has mild luminal irregularities. Lesion Information Lesion # Vessel Segment Lesion Length Lesion Details Proximal LAD Hemodynamics State: Baseline Pressures (mmHg) Site Systolic Diastolic End Diastolic A Wave V Wave Mean AO 87 50 65 Procedure Details Estimated Blood Loss: < 30 ml Specimen Collected: None Level of Sedation Achieved: Moderate Procedure Start: 10:55 Procedure End: 11:10 Procedure Time: 15 min Cumulative Air Kerma: 880 mGy DAP: 4534 uGy/M2 Physiologic Data Weight: 145.0 kg BSA: 2.57 m2 Vascular Access Time Access Sheath Size 10:56 Right Radial Artery, sheath inserted Medications Ordered and Administered Start Time Stop Time Medication Dose Units Route Ordered By Given By 10:53 Fentanyl 50 mcg IV Joe Jay Mellina RN 10:53 Versed 1 mg IV Joe Jay Mellina RN 10:55 1% Lidocaine 1 ml Subcut Joe Jay Jaskanwal 10:57 Nitroglycerin 100 mcg IA Joe Jay Jaskanwal 10:59 Heparin 7000 units IV Joe Jay Mellina RN I personally monitored the patient?s conscious sedation during theprocedure. Conscious sedation starts with the first sedation medication dose ofFentanyl or Versed and ends when the procedure is completed, the patientis stable for recovery status, and the physician or other qualified healthcare professional providing the sedation ends personal [id number]-[id number]-[id number] time with the patient. The medications listed above were verbally ordered by me and read back tome as documented above. Refer to the procedure log report for additional case details. electronically signed on 05/17/2024 1:36:34 PM with status of Final Joe Jay MD [facility] [address] [facility] [address] [place] [address] (p) (f) Provider Referring CV IMAGING * ECHO TTE COMPLETE W CONTRAST (04/20/2024 1:03 PM CDT) AORTIC VALVE MEAN PG 6 mmHg EJECTION FRACTION 39 % LVEDD 6.5 cm EJECTION FRACTION 30 - 35% Anatomical Region Laterality Modality Ultrasound 04/20/2024 12:0 7 PM CDT Narrative 04/20/2024 1:53 PM CDT ECHOCARDIOGRAM NGOZI MENDOZA ?Accession#: ?? [id number] : ?1955 69 years Study Date: ?? 04/20/2024 12:07:45 PM Gender: M ? BP: ? 123/70 mmHg Height: 180.00 cm ? BSA: ?2.61 m? ? ? Weight: 150.00 kg ? Tech: ? MBF ?Referring MD: GENEVIEVE MELTON Site: ? [facility] Reading Location: Mobile [facility] Patient Location: Inpatient. Procedure: 2D w/ Contrast, Color Doppler and Spectral Doppler. Indication for study: Hypoxia Cardiac Rhythm: Irregular.Study quality: Fair. Imaging limitations: This study was subject to imaging limitations due to body habitus. Final Impressions: 1. Moderately increased LV size, moderately reduced function with an estimated EF of 30 - 35%. 2. There is moderate global left ventricular hypokinesis. 3. Right ventricular cavity size is normal, global systolic RV function is normal. 4. No significant valve disease detected. 5. Echo contrast was administered to enhance visualization of all left ventricular segments. Comparison There are no prior studies on this patient for comparison purposes. Chamber Sizes and Function Moderately increased left ventricular size, normal wall thickness, moderately reduced global systolic function with an estimated EF of 30 - 35%. There is moderate global left ventricular hypokinesis. Left atrial size is normal. Right ventricular cavity size is normal, global systolic RV function is normal. The right atrium is normal. Right atrial volume index is 33 ml/m? ? ?. Right atrial area is 23 cm? ? ?. The pulmonary artery is of normal size and origin. The sinus of Valsalva is normal sized. The ascending aorta is not well visualized. Valves, RV Pressures and Diastolic Function The aortic valve is normal in structure and trileaflet, no stenosis and no regurgitation. The mitral valve is normal in structure, trace mitral regurgitation. Indeterminate pattern of LV diastolic filling. The tricuspid valve is normal in structure. Tricuspid regurgitation is trace regurgitation. The pulmonic valve is not well visualized. Unable to determine pulmonary regurgitation. Masses, Effusion, Shunts There is no pericardial effusion. The inferior vena cava is dilated, respiratory size variation greater than 50%. No left to right shunting was detected by limited color flow Doppler interrogation of the interatrial septum. MEASUREMENTS AND CALCULATIONS 2-D Measurements and LV Function: LVID (d) 6.5 cm LV FS% (2D) ?? 12 % LVID (s) 5.7 cm LVOT diameter 2.2 cm Ao Sinus 3.6 cm HR ?81 bpm ?LA Vol index ??37 ml/m2 ?RA Vol index ??33 ml/m2 ?RA area ? 23 cm?RV Max 4C (d) 4.5 cm Diastology: Mitral ?Tissue Doppler E Peak 0.9 m/s ??e', Septum ? 0.06 m/s A Peak 1.1 m/s ??e', Lateral ?0.10 m/s E/A ?0.8 ?E/e' Average ?? 11.35 DT ? 216 msec Aortic Valve: Vmax ? 1.6 m/s ??ZEN (V) ?? 2.70 cm? ? ? VTI ?0.37 m ?? ZEN (I) ?? 2.75 cm? ? ? LVOT V max 1.1 m/s ??Max PG ?10 mmHg LVOT VTI ?? 0.27 m ?? Mean PG ?? 6 mmHg SV ? 103 ml ?? Dim Index 0.73 SV index ?? 39 ml/m? ? ? CO ?8.3 l/min ?CI ?3.2 l/min/m? ? ? Mitral Valve: MVA ?3.5 cm? ? ? MR TVI 1.83 m MV P 1/2 63 msec Tricuspid Valve and estimated PA pressures: TAPSE 2.9 cm Contrast documentation: 3 ml diluted Definity, lot #[id number], [facility]# [id number] was administered peripherally to enhance visualization of all left ventricular segments. . This study was interpreted by an [facility] accredited facility. CC: HIM (med records) [facility], Med/Surg - IP [facility]. ??Final ?? Procedure Note Anthony Camacho MD - 04/20/2024 ECHOCARDIOGRAM NGOZI MENDOZA : 1955 69 years Study Date: 04/20/2024 12:07:45 PM Gender: M BP: 123/70 mmHg Height: 180.00 cm BSA: 2.61 m? ? ? Weight: 150.00 kg Tech: [facility] Referring MD: GENEVIEVE MELTON Site: [facility] Reading Location: Mobile [facility] Patient Location: Inpatient. Procedure: 2D w/ Contrast, Color Doppler and Spectral Doppler. Indication for study: Hypoxia Cardiac Rhythm: Irregular.Study quality: Fair. Imaging limitations: This study was subject to imaging limitations due tobody habitus. Final Impressions: 1. Moderately increased LV size, moderately reduced function with anestimated EF of 30 - 35%. 2. There is moderate global left ventricular hypokinesis. 3. Right ventricular cavity size is normal, global systolic RV functionis normal. 4. No significant valve disease detected. 5. Echo contrast was administered to enhance visualization of all leftventricular segments. Comparison There are no prior studies on this patient for comparison purposes. Chamber Sizes and Function Moderately increased left ventricular size, normal wall thickness,moderately reduced global systolic function with an estimated EF of 30 -35%. There is moderate global left ventricular hypokinesis. Left atrialsize is normal. Right ventricular cavity size is normal, global systolicRV function is normal. The right atrium is normal. Right atrial volumeindex is 33 ml/m? ? ?. Right atrial area is 23 cm? ? ?. The pulmonary artery isof normal size and origin. The sinus of Valsalva is normal sized. Theascending aorta is not well visualized. Valves, RV Pressures and Diastolic Function The aortic valve is normal in structure and trileaflet, no stenosis and noregurgitation. The mitral valve is normal in structure, trace mitralregurgitation. Indeterminate pattern of LV diastolic filling. Thetricuspid valve is normal in structure. Tricuspid regurgitation is traceregurgitation. The pulmonic valve is not well visualized. Unable todetermine pulmonary regurgitation. Masses, Effusion, Shunts There is no pericardial effusion. The inferior vena cava is dilated,respiratory size variation greater than 50%. No left to right shunting wasdetected by limited color flow Doppler interrogation of the interatrialseptum. MEASUREMENTS AND CALCULATIONS 2-D Measurements and LV Function: LVID (d) 6.5 cm LV FS% (2D) 12 % LVID (s) 5.7 cm LVOT diameter 2.2 cm Ao Sinus 3.6 cm HR 81 bpm LA Vol index 37 ml/m2 RA Vol index 33 ml/m2 RA area 23 cm? ? ? RV Max 4C (d) 4.5 cm Diastology: Mitral Tissue Doppler E Peak 0.9 m/s e', Septum 0.06 m/s A Peak 1.1 m/s e', Lateral 0.10 m/s E/A 0.8 E/e' Average 11.35 DT 216 msec Aortic Valve: Vmax 1.6 m/s ZEN (V) 2.70 cm? ? ? VTI 0.37 m ZEN (I) 2.75 cm? ? ? LVOT V max 1.1 m/s Max PG 10 mmHg LVOT VTI 0.27 m Mean PG 6 mmHg SV 103 ml Dim Index 0.73 SV index 39 ml/m? ? ? CO 8.3 l/min CI 3.2 l/min/m? ? ? Mitral Valve: MVA 3.5 cm? ? ? MR TVI 1.83 m MV P 1/2 63 msec Tricuspid Valve and estimated PA pressures: TAPSE 2.9 cm Contrast documentation: 3 ml diluted Definity, lot #[id number], [facility]#[id number] was administered peripherally to enhance visualization of allleft ventricular segments. . This study was interpreted by an [facility] accredited facility. CC: BETTE (med records) [facility], Med/Surg - IP [facility]. Final Genevieve Melton ECHO ORD from Last 3 Months Advance Directives * Full Code (Latest Code Status on File) Date Activated Date Inactivated Comments 05/26/2024 8:24 PM 05/27/2024 3:01 PM Question Answer Comments Code Status Discussion: Reviewed Preferences * Full Code Date Activated Date Inactivated Comments 05/17/2024 11:18 AM 05/17/2024 5:07 PM Question Answer Comments Code Status Discussion: Unable to Assess Preferences, Provider to review later Care Teams Rehabilitation Manager Relationship Specialty Start Date End Date Trav Mccord MD [id number] [place] [address] PCP - General Family Practice 05/03/24
--- NOTE | 2024-06-04 17:03 | ED.GENADULT ---
HPI - General Adult General Date Seen: 06/04/24 Chief complaint: Edema Stated complaint: swelling in legs Time Seen by Provider: 06/04/24 16:15 Source: patient Mode of arrival: ambulatory Limitations: no limitations History of Present Illness HPI narrative: Patient is a 69-year-old male presenting to emergency department concerned about lower extremity edema. He has a history of CHF and was recently as torsemide increased due to the edema. On 05/26/2024 he had a lesion to the right groin line for his atrial fibrillation. Currently on Eliquis. The Arimidex 1 was not improving so he spoke to the triage who told him to come to the emergency department for evaluation for a blood clot. He has had issues with swelling legs before but medications helped in the past. No history of blood clots. Denies chest pain, shortness of breath, lightheadedness, dizziness, weakness, numbness, abdominal pain, headache, vision changes. He does think most the swelling is around the ankles. Is not having any associated pain. He states he feels asymptomatic at this time. Related Data Home Medications ?Medication ?Instructions ?Recorded ?Confirmed apixaban 5 mg tablet (Eliquis) 5 mg PO BID 05/21/24 05/31/24 Previous Rx's ?Medication ?Instructions ?Recorded lisinopril 5 mg tablet 5 mg PO DAILY #90 tabs 05/21/24 metformin 750 mg tablet,extended 1,500 mg (2 x 750 mg) PO HS #180 05/31/24 release 24 hr tabs metoprolol succinate 50 mg 50 mg PO QDAY #90 tabs 05/31/24 tablet,extended release 24 hr rosuvastatin 20 mg tablet 20 mg PO QPM #90 tabs 05/31/24 spironolactone 25 mg tablet 25 mg PO DAILY #90 tabs 05/31/24 torsemide 20 mg tablet 20 mg PO DAILY #90 tabs 05/31/24 Allergies Allergy/AdvReac Type Severity Reaction Status Date / Time No Known Drug Allergies Allergy Verified 05/31/24 09:53 Review of Systems Status of ROS: Reports: 10 or more systems reviewed and unremarkable except as noted in History and below [facility] Medical History Acute hypoxemic respiratory failure ?J96.01 - Acute respiratory failure with hypoxia (ICD-10) Surgical History H/O varicose vein ligation and stripping ?Z98.890 - Other specified postprocedural states (ICD-10) Status post arthroscopy of right knee (04/17/12) ?Z98.890 - Other specified postprocedural states (ICD-10) Social History Narrative: Lives with ( would be medical decision maker if needed) locally, 3 adult children. Works for [employer]. Former smoker, no concerning ETOH use. Requests Full Code Status. What is your current living situation?: I presently have a place to live Problems where you live: no known problems Problems where you live details: NA In the past 12 months, utilities in danger of being shut off: no In past 12 months, lack of transportation kept you from medical appts, meetings, work, or getting things needed for daily living: no In the past 12 mos, have been you worried that your food would run out before you had money to buy more?: never true In the past 12 mos, the food you bought just didn't last and you didn't have money to buy more?: never true Highest level of school completed/degree received: 12th grade, no diploma Smoking Status: Former smoker How often do you have a drink containing alcohol: never How often do you have six or more drinks on one occasion: Never AUDIT-C Alcohol total score: 0 Non-prescribed substance use: denies use How often does anyone, including family, friends and others, physically hurt you: never How often does anyone, including family, friends and others, insult or talk down to you: never How often does anyone, including family, friends and others, threaten you with harm: never How often does anyone, including family, friends and others, scream or curse at you: never Little interest or pleasure in doing things: not at all Feeling down, depressed, or hopeless: not at all Exam Narrative: Exam Narrative: Const: Well-nourished, Well-developed, in no distress Eyes: PERRL, no conjunctival injection, and symmetrical lids HENT: Atraumatic external nose and ears. Moist mucous membranes. Neck: Symmetric, trachea midline, No thyromegaly. CVS: RRR, No murmurs or gallops. Peripheral pulses 2+ and equal in all extremities RESP: Unlabored respiratory effort. Clear to auscultation bilaterally. GI: Nontender/Nondistended, No rebound or guarding. Extremities:Extremities w/o deformity, Normal Active ROM, +2 lower extremity pitting edema almost up to the knees bilaterally may be a little bit worse on the right compared to left Skin: Warm, Dry. No rashes or lesions. Neuro: Normal Muscle tone, No focal neurological deficits. Psych: Awake, Alert, & Oriented x3. Appropriate mood and affect. Const: Vital Signs, click to edit/add: Vital Signs - 24 hr 06/04/24 16:31 Temperature 98.2 F Pulse Rate [Pulse Oximeter] 81 Respiratory Rate 22 Blood Pressure [Ri ght Forearm] 118/65 Pulse Oximetry 96 Oxygen Delivery Me thod Room Air Course Vital Signs Vital signs: Initial Vital Signs Temperature 98.2 F 06/04/24 16:31 Temperature Source Temporal Artery Scan 06/04/24 16:31 Pulse Rate 81 06/04/24 16:31 Pulse Rhythm Regular 06/04/24 16:31 Respiratory Rate 22 06/04/24 16:31 Blood Pressure 118/65 06/04/24 16:31 Blood Pressure Mean 82 06/04/24 16:31 Pulse Oximetry 96 06/04/24 16:31 Oxygen Delivery Method Room Air 06/04/24 16:31 Vital Signs Temperature 98.2 F 06/04/24 16:31 Pulse Rate 81 06/04/24 16:31 Respiratory Rate 22 06/04/24 16:31 Blood Pressure 118/65 06/04/24 16:31 Pulse Oximetry 96 06/04/24 16:31 Oxygen Delivery Method Room Air 06/04/24 16:31 Temperature 98.2 F 06/04/24 16:31 Pulse Rate 81 06/04/24 16:31 Respiratory Rate 22 06/04/24 16:31 Blood Pressure 118/65 06/04/24 16:31 Pulse Oximetry 96 06/04/24 16:31 Oxygen Delivery Method Room Air 06/04/24 16:31 Medical Decision Making MDM Narrative Medical decision making narrative: Patient is a 69-year-old male presenting to the emergency department for lower extremity edema. The right leg does seem little bit more swollen than the left and despite being on Eliquis I will do a bilateral lower extremity ultrasound to look for signs of a DVT as he did have of procedure go through his right groin. There is and minimal bruising in the area at this time in no tenderness. No signs of a hematoma. Will also check a BNP, CBC, magnesium, BMP and do an EKG. Lab work does show an elevated white count of 20. He has had quite elevated white count for the past month or so. Unsure why. His primary care provider is aware of this. I was able to see in [facility] that his white count at the end of April was 14 and with this recent procedure may have cause it to elevate but do not see any clear signs of infection. The site where procedure was entered through looks well. At this point but is white count some he can follow-up outpatient. BNP is slightly elevated 658 but actually better than previous times. Ultrasound shows no sign of blood clots. EKG shows no concerning findings. At this point seems most likely the swelling is due to his heart failure and they may have to adjust the doses more since his procedure. He is feeling well and is comfortable discharge. Will discharge him at this time. He does have a follow-up with his primary care provider next week. Lab Data Labs: Lab Results 06/04/24 Range/Units 17:23 WBC 20.08 H (4.50-11.00) K/uL RBC 4.09 L (4.30-5.90) m/uL Hgb 11.6 L (13.5-17.5) gm/dL Hct 36.0 L (37.0-53.0) % MCV 88 (80-100) fL MCH 28 (26-34) pg MCHC 32 (32-36) gm/dL RDW Coeff of Dinah 14.9 (11.5-15.5) % Plt Count 298 (140-440) K/uL Neut % (Auto) 79.3 H (42.0-72.0) % Lymph % (Auto) 14.4 L (20-44) % [place] % (Auto) 5.0 (0.0-11.0) % Eos % (Auto) 0.9 (0.0-7.0) % Baso % (Auto) 0.2 (0.0-3.0) % Neut # (Auto) 15.90 H (1.7-7.0) K/uL Lymph # (Auto) 2.90 (0.90-2.90) K/uL [place] # (Auto) 1.00 H (0.00-0.90) K/UL Eos # (Auto) 0.20 (0.00-0.50) K/uL Baso # (Auto) 0.00 (0.00-0.30) K/uL Abs Immat Gran (auto) 0.00 (0.00-0.30) K/uL Imm/Tot Granulo (auto) 0.2 % Sodium 135 (135-149) mmol/L Potassium 3.8 (3.6-5.1) mmol/L Chloride 93 L (96-114) mmol/L Carbon Dioxide 33 H (20-32) mmol/L Anion Gap 9 (7-15) mEq/L BUN 26 (7-30) mg/dL Creatinine 1.0 (0.5-1.5) mg/dL Estimated Creat Clear 76.35 Estimated GFR 82 ml/min Glucose 107 (60-115) mg/dL Calcium 8.6 (8.4-10.6) mg/dL Magnesium 1.6 (1.5-2.6) mg/dL NT-Pro-B Natriuret Pep 658 pg/mL Imaging Data Venous US: Attestation: I have reviewed the pertinent imaging results. Radiologist's impression: No ultrasound evidence of deep venous thrombosis. Dictated by Anthony Queen MD @ 06/04/2024 5:48:58 PM ECG Data Attestation: I personally reviewed and interpreted this ECG as follows: Prior ECG tracings: available for review Interpretation: Normal sinus rhythm with a rate of 80 beats per minute, normal intervals, normal axis, no ST or T-wave abnormalities. Appears similar previous EKG on file 3 days prior. Discharge Plan Discharge Clinical Impression: Bilateral edema of lower extremity Instructions: Leg Edema (ED) Additional Instructions: Your lower extremity swelling is most likely from your heart failure in the may need to adjust her medications more. At this time though everything looks well. Also speak to your primary care provider about the elevated white count. He start developing any signs infection such as fevers, chills, weakness or any other concerning symptoms return for re-evaluation. Prescriptions: No Action Eliquis 5 mg tablet 5 mg PO BID lisinopril 5 mg tablet 5 mg PO DAILY Qty: 90 3RF metformin 750 mg tablet extended release 24 hr 1,500 mg PO HS Qty: 180 3RF Rx Instructions: Keep on file metoprolol succinate 50 mg tablet extended release 24 hr 50 mg PO QDAY Qty: 90 3RF rosuvastatin 20 mg tablet 20 mg PO QPM Qty: 90 3RF spironolactone 25 mg tablet 25 mg PO DAILY Qty: 90 3RF Rx Instructions: Please fill THIS Rx (25mg daily) torsemide 20 mg tablet 20 mg PO DAILY Qty: 90 3RF Follow Up/Referrals: Trav Hayes MD [Primary Care Provider] - Stand Alone Forms: [employer] Info Instructions
[2024-06-04 17:29] LABS: Basophils Percent Auto 0.2 % (0.0-3.0); Eosinophils Percent Auto 0.9 % (0.0-7.0); Hemoglobin* 11.6 gm/dL (13.5-17.5); Immature Granulocytes Pct Auto 0.2 %; Lymphocytes Percent Auto 14.4 % (20-44); Mean Corpuscular HGB Conc 32 gm/dL (32-36); Mean Corpuscular Hemoglobin 28 pg (26-34); Mean Corpuscular Volume 88 fL (80-100); Neutrophils Percent Auto 79.3 % (42.0-72.0); Platelet Count* 298 K/uL (140-440); RDW Coefficient of Variation % 14.9 % (11.5-15.5); Red Blood Count 4.09 m/uL (4.30-5.90); White Blood Count* 20.08 K/uL (4.50-11.00)
[2024-06-04 17:33] LABS: Slide Review Reflex No
[2024-06-04 17:41] LABS: Chloride* 93 mmol/L (96-114)
[2024-06-04 17:42] LABS: Potassium* 3.8 mmol/L (3.6-5.1); Sodium* 135 mmol/L (135-149)
[2024-06-04 17:44] LABS: Est. Creatinine Clearance* 76.35; Estimated Glomerular Filt Rate 82 ml/min
[2024-06-04 17:45] LABS: Anion Gap 9 mEq/L (7-15); Blood Urea Nitrogen* 26 mg/dL (7-30); Calcium* 8.6 mg/dL (8.4-10.6); Carbon Dioxide* 33 mmol/L (20-32); Glucose* 107 mg/dL (60-115); Magnesium* 1.6 mg/dL (1.5-2.6)
[2024-06-04 17:54] LABS: NT Pro B Type NatriureticPept* 658 pg/mL
== END 2024-06-04 18:22 | disposition home or self-care (01) ==
PROVIDERS: Emergency Provider Student in an Organized Health Care Education/Training Program; PCP Family Medicine
DX: R60.9 Edema, unspecified (principal)
CPT/HCPCS: 36415; 80048; 83735; 83880; 85025; 93005; 93970; 99283; 99284; 99285

== ENCOUNTER 2024-07-07 14:33 | Outpatient (REF) | payer OTHER, SELFPAY ==
[2024-07-07 17:43] LABS: Chloride* 97 mmol/L (96-114); Sodium* 142 mmol/L (135-149)
[2024-07-07 17:44] LABS: Potassium* 4.6 mmol/L (3.6-5.1)
[2024-07-07 17:46] LABS: Blood Urea Nitrogen* 20 mg/dL (7-30); Creatinine* 0.9 mg/dL (0.5-1.5); Estimated Glomerular Filt Rate 94 ml/min
[2024-07-07 17:47] LABS: Anion Gap 10 mEq/L (7-15); Calcium* 8.8 mg/dL (8.4-10.6); Carbon Dioxide* 35 mmol/L (20-32); Glucose* 102 mg/dL (60-115)
== END 2024-07-07 14:34 | disposition home or self-care (01) ==
LOC: NPINS 14:33
PROVIDERS: PCP Family Medicine; Visit Provider Nurse Practitioner
DX: I50.22 Chronic systolic (congestive) heart failure (principal)
CPT/HCPCS: 80048

== ENCOUNTER 2024-07-16 13:56 | Outpatient (CLI) | payer OTHER, SELFPAY ==
[2024-07-16 14:14] LABS: Chloride* 102 mmol/L (96-114)
[2024-07-16 14:15] LABS: Potassium* 5.1 mmol/L (3.6-5.1); Sodium* 142 mmol/L (135-149)
[2024-07-16 14:17] LABS: Creatinine* 0.8 mg/dL (0.5-1.5); Estimated Glomerular Filt Rate 97 ml/min
[2024-07-16 14:18] LABS: Anion Gap 8 mEq/L (7-15); Blood Urea Nitrogen* 19 mg/dL (7-30); Calcium* 8.9 mg/dL (8.4-10.6); Carbon Dioxide* 32 mmol/L (20-32); Glucose* 113 mg/dL (60-115)
== END 2024-07-16 13:57 | disposition home or self-care (01) ==
LOC: NPINS 13:57
PROVIDERS: PCP Family Medicine; Visit Provider Family Medicine
DX: I50.22 Chronic systolic (congestive) heart failure (principal)
CPT/HCPCS: 80048

== ENCOUNTER 2025-01-05 09:22 | Emergency (ER) | payer OTHER, SELFPAY ==
[2025-01-05] VITALS (21 sets, daily range): BP systolic 58–123; BP diastolic 31–93; PULSE 53–68; RESP 5–22; TEMP 36; O2SAT 97–100; BMI 37.7
--- OUTSIDE RECORDS SUMMARY | 2025-01-05 09:25 | XMS_ITS | Clinical Summary ---
Author Organization [employer] [facility] [employer] [facility] Address [facility] [place] [address] Care Team Providers Care Vacuum Conditioner Operator Name Role Phone Trav Hayes MD Primary Care Provider [phone] [facility], [facility] Unavailable [phone] Allergies No known active allergies Medications spironolactone (ALDACTONE) 25 mg tabletIndications:Sy stolic heart [...] mouth two times daily. 60 Tablet 11 5 Active rosuvastatin (CRESTOR) 20 mg tabletIndications:Ca rdiovascular symptoms,Coronary artery disease, unspecified vessel or lesion type, unspecified whether angina present, unspecified whether [place] or transplanted heart Take 1 Tablet (20 mg) by mouth at bedtime. 30 Tablet 11 5 Active torsemide (DEMADEX) 20 mg tabletIndications:Sy stolic heart failure, unspecified HF chronicity (HC) Take 2 Tablets (40 mg) by mouth once daily. 180 Tablet 3 5 Active dapagliflozin propanediol (Farxiga) 10 mg tabletIndications:Ch ronic HFrEF (heart failure with reduced ejection fraction) (HC) Take 1 Tablet (10 mg) by mouth once daily. 30 Tablet 2 Active metoprolol succinate 50 mg sustained-release tabletIndications:CH F (congestive heart failure), NYHA class II, chronic, combined (HC),PVC's (premature ventricular contractions) Take 1 Tablet (50 mg) by mouth two times daily. 180 Tablet 1 Active lisinopriL 20 mg tabletIndications:Sy stolic heart failure, unspecified HF chronicity (HC) Take 1 Tablet (20 mg) by mouth two times daily. 180 Tablet 3 Active Active Problems Problem Noted Date Diagnosed Date Chronic anticoagulation 11/29/2024 Atherosclerosis of [place] co ronary artery of [place] heart without angina pectoris 11/29/2024 Non-ischemic cardiomyopathy 11/29/2024 PVC's (premature ventricular contractions) 11/29 CHF (congestive heart failur e), NYHA class II, chronic, combined 05/17/2024 Typical atrial flutter 05/17/2024 Encounters Date Type Department Care Team Description 01/02/2025 Refill [facility] [address] [place] [address] Tiffany Chahal CNS Refill Request (Farxiga) 12/17/2024 Telephone [facility] [address] [place] [address] Dione Moreno RN, CCRN EP PROCEDURE 11/30/2024 Telephone [facility] [address] [facility] [address] [place] [address] Harlan Curtis MD Care Coordination 11/29/2024 1:00 PM CDT Office Visit [facility] [address] [facility] [address] [place] [address] Lamont Bolton MD Follow Up (gen card follow up per Carmen Chahal - [place], lives [place]. - dx;Systolic heart failure, unspecified HF chronicity/pt states he feels good with no cardiac sx ) 11/29/2024 Travel 10/28/2024 Refill [facility] [address] [facility] [address] [place] [address] Tiffany Chahal, ENVELOPE SEALER OPERATOR Refill Request 10/28/2024 Telephone [facility] [address] [facility] [address] [place] [phone] Harlan Curtis MD Results (CMRI) 10/27/2024 12:00 PM CDT Orders Only [facility] [address] [facility] [address] [place] [phone] Lab 10/27/2024 11:52 AM CDT - 10/27/2024 11:59 PM CDT Hospital Encounter [facility] [address] [place] [address] Harlan Curtis MD Typical atrial flutter (HC); Chronic HFrEF (heart failure with reduced ejection fraction) (HC) 10/27/2024 Travel 10/20/2024 Telephone [facility] [address] [address] Tiffany Chahal CNS Results 10/15/2024 3:20 PM CDT Orders Only [facility] [address] [facility] [address] [place] [address] Lab 10/15/2024 Travel 10/13/2024 Telephone [facility] [address] [address] Harlan Curtis MD Results (Zio Patch) from Last 3 Months Family History Medical History Relation Name Comments Coronary artery disease Brother Relation Name Status Comments Brother Social History Tobacco Use Types Packs/Day Years Used Date Smoking Tobacco: Former Cigarettes Smokeless Tobacco: Never Tobacco Cessation:Counseling Given: Not Answered Comments:quit around 1999 Alcohol Use Standard Drinks/Week Comments No 0 (1 standard drink = 0.6 oz pur e alcohol) Interpersonal Safety Answer Date Record ed Are you being hit, kicked, p ushed or yelled at (see row info)? 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 Gender Identity Not on file Sexual Orientation Not on file Obstetrics History Last Filed Vital Signs Vital Sign Reading Time Taken Comments Blood Pressure 102/62 11/29/2024 12:58 PM CDT Pulse 63 11/29/2024 12:58 PM CDT Temperature 36.3 C (97.4 F) 05/27/2024 7:38 AM CDT Respiratory Rate 12 05/27/2024 7:38 AM CDT Oxygen Saturation 98% 11/29/2024 12:58 PM CDT Inhaled Oxygen Concentration - - Weight 134.3 kg (296 lb) 11/29/2024 12:58 PM CDT Height 180.3 cm (5' 11) 11/29/2024 12:58 PM CDT Body Mass Index 41.28 11/29/2024 12:58 PM CDT Plan of Treatment Upcoming Encounters Date Type Department Care Team (Late st Contact Info) Description 01/13/2025 10:40 AM CDT Orders Only [facility] [address] [facility] [address] [place] [address] 01/20/2025 11:30 AM CDT Appointment [facility] [address] [facility] [address] [place] [address] Nikko Mccray MD [address] [place] [address] 02/14/2025 9:00 AM CDT Office Visit [facility] [address] [facility] [address] [place] [address] Tiffany Chahal, ENVELOPE SEALER OPERATOR [address] [facility] [address] [place], [place] [id number] Health Maintenance Due Date Last Done Comments Tdap 02/28/1968 Depression screening for age 12+ 1969 Hepatitis C screening for age 18-79 1975 Pneumococcal series for age 50+ (1 of 2 - PCV) 02/28/1976 Tetanus booster 1977 Colonoscopy through age 75 2002 Lipids for age 45-75 2002 Zoster (shingles) series for age 50+ (1 of 2) 2007 RSV vaccine for adults or (1 - Risk 60-74 years 1-dose series) 2017 AAA screening age 65-74 2022 Medicare Wellness for age 65+ 2022 COVID-19 vaccine series ( - season) 2024 Influenza Vaccine (Season Ended) 2025 BMI (ht and wt on same day) for age 18+ 11/29/2025 11/29/2024, 09/30/2024, 08/23/2024, Additional history exists Hepatitis B series for 19+ Aged Out N o longer eligible based on patient's age to complete this topic Procedures Procedure Name Priority Date/Time Associated Diagnosis Comments MR CARDIAC WWO Routine 10/27/2024 2:11 PM CDT Typical atrial flutter (HC) Chronic HFrEF (heart failure with reduced ejection fraction) (HC) ISTAT CHEM 8 Routine 10/27/2024 12:26 PM CDT BASIC METABOLIC PANEL Routine 10/27/2024 12:05 PM CDT CHF (congestive heart failure), NYHA class II, chronic, combined (HC) BASIC METABOLIC PANEL Routine 10/15/2024 3:19 PM CDT Chronic HFrEF (heart failure with reduced ejection fraction) (HC) from Last 3 Months Results * MR CARDIAC WWO (10/27/2024 2:11 PM CDT) Anatomical Region Laterality Modality HEART, THORAX Magnetic Resonan ce 10/27/2024 1:01 PM CDT Narrative 10/27/2024 2:51 PM CDT [facility] CMR Report Name: REJI NGOZI L : Scan Date: Accession Number: [id number] Status: Final Electronically signed by Mac Kay 14:51:27 VITALS ===== HEIGHT: 71 in (180 cm) WEIGHT: 299 lbs (136 kgs) BSA: 2.50 m^2 FINAL IMPRESSION ===== 1. The left ventricle global systolic function is moderately reduced with an LV ejection fraction calculated at 33%. A. The LV is moderately enlarged in cavity size, LVEDVi 120 ml/m2. B. Moderate diffuse hypokinesis. 2. The right ventricle is normal in cavity size, wall thickness, and systolic function. 3. Delayed enhancement imaging demonstrates mid-myocardial hyperenhancement of the basal to mid septal segments, a non-specific findings seen in patients with non-ischemic cardiomyopathy. A. ECV is elevated at 30%, compatible with interstitial fibrosis. No evidence of infiltrative cardiomyopathy. B. T2 map is normal, there is no evidence of inflammatory cardiomyopathy or myocarditis. 4. No intracardiac thrombus visualized. 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 SUMMARY ===== Unable to accurately quantify valve disease due to gating artifact in the setting of arrythmia and use of real time imaging. Accuracy of volume quantification also reduced due to gating artifact. LEFT VENTRICLE: Quantitative LVEF 33 %. LV cavity is moderately enlarged. LV systolic function is moderately decreased globally. There is no LV mass/thrombus. VIABILITY: LV scar size is 2 %. RIGHT VENTRICLE: Quantitative RVEF 50 %. RV wall thickness is normal. RV cavity size is normal. RV systolic function is normal. There is no RV mass/thrombus. LV/RV SEPTUM: The LV/RV septum is normal. LEFT ATRIUM: LA is severely enlarged. RIGHT ATRIUM: RA is moderately enlarged. PERICARDIUM: Pericardium is normal. There is no pericardial effusion. There are no signs of increased intrapericardial pressures. PLEURAL EFFUSION: There is no pleural effusion. AORTIC VALVE: Aortic valve leaflets are normal. There is no aortic stenosis. MITRAL VALVE: Mitral valve leaflets are normal. There is mild mitral regurgitation. Unable to accurately quantify valve disease due to gating artifact in the setting of arrythmia and use of real time imaging. TRICUSPID VALVE: Tricuspid valve leaflets are normal. There is mild tricuspid regurgitation. PULMONIC VALVE: Pulmonic valve leaflets are normal. AORTIC ROOT: maximal diameter 39 x 39 x 38 mm. OTHER FINDINGS: Proximal ascending aorta 37 x 37 mm. CORE EXAM ===== MEASUREMENTS ----- --- VOLUMETRIC ANALYSIS . . LV Reference RV Reference +------+--------+-----+ +-----+ + EDV ml 300 (109-191) 208 (105-205) ml/m^2 120 (60-95) 83 (56-101) ESV ml 201 (27-72) 105 (20-80) ml/m^2 80 (14-36) 42 (11-40) CO MASS g 156 (107-183) g/m^2 62 (57-90) SV ml 99 (73-129) 103 (71-139) ml/m^2 40 (40-64) 41 (37-69) EF % 33 (58-76) 50 (55-81) '------+--------+-----+ +-----+ ' LA DIMENSIONS (LV SYSTOLE) VOLUME: 116 ml VOLUME NORMALIZED: 46.4 ml/m^2 RA DIMENSIONS (RV SYSTOLE) VOLUME: 96 ml VOLUME NORMALIZED: 38.4 ml/m^2 EXTRACELLULAR VOLUME MEASUREMENT ECV: 30 % 17 SEGMENT ----- --- . ----- ------. Segments Wall Motion Hyperenhancement Stress Perfusion Interpretation + + + + +----- ----- ------+ Base Anterior Severe Hypo None Base Anteroseptal Severe Hypo 1-25% Base Inferoseptal Severe Hypo 1-25% Base Inferior Severe Hypo None Base Inferolateral Severe Hypo None Base Anterolateral Severe Hypo None Mid Anterior Severe Hypo None Mid Anteroseptal Severe Hypo 1-25% Mid Inferoseptal Severe Hypo None Mid Inferior Severe Hypo None Mid Inferolateral Severe Hypo None Mid Anterolateral Severe Hypo None Apical Anterior Severe Hypo None Apical Septal Severe Hypo None Apical Inferior Severe Hypo None Apical Lateral Severe Hypo None [place] Severe Hypo None + + + + +----- ----- ------+ RV Segments Wall Motion Hyperenhancement Interpretation + + + + +----- ----- ------+ RV Basal Anterior Normal/Hyper None RV Basal Inferior Normal/Hyper None RV Mid Normal/Hyper None RV Apical Normal/Hyper None ' + + + +----- ----- ------' FINDINGS LV SCAR SIZE (17 SEGMENT): 2 % SCAN INFO ===== GENERAL ----- --- SCANNER REACTOR TECHNICIAN: SIEMENS MODEL: Aera CONTRAST AGENT TYPE: Gadavist GD CONCENTRATION: 1.0 M SETUP REFERRING PHYSICIAN: HARLAN CURTIS ATTENDING PHYSICIAN: HARLAN CURTIS BILLING ===== Patient Account [id number] ICD10 Codes I48.3, I50.22 Report generated by [employer], a product of [employer] Procedure Note Rolando Mckinley MD - 10/27/2024 [facility] CMR Report Name: NGOZI MENDOZA : Scan Date: Accession Number: [id number] Status: Final Electronically signed by Mac Kay 14:51:27 VITALS ===== HEIGHT: 71 in (180 cm) WEIGHT: 299 lbs (136 kgs) BSA: 2.50 m^2 FINAL IMPRESSION ===== 1. The left ventricle global systolic function is moderately reduced withan LV ejection fraction calculated at 33%. A. The LV is moderately enlarged in cavity size, LVEDVi 120 ml/m2. B. Moderate diffuse hypokinesis. 2. The right ventricle is normal in cavity size, wall thickness, andsystolic function. 3. Delayed enhancement imaging demonstrates mid-myocardialhyperenhancement of the basal to mid septal segments, a non-specific findings seen in patients with non- ischemiccardiomyopathy. A. ECV is elevated at 30%, compatible with interstitial fibrosis.Noevidence of infiltrative cardiomyopathy. B. T2 map is normal, there is no evidence of inflammatorycardiomyopathy or myocarditis. 4. No intracardiac thrombus visualized. Conclusion: Non-ischemic idiopathic dilated cardiomyopathy with severelyreduced LV function, LVEF 33% and mid-myocardial LGE in a pattern seen in patients with NICM. SUMMARY ===== Unable to accurately quantify valve disease due to gating artifact in thesetting of arrythmia and use of real time imaging. Accuracy of volume quantification also reduced due togating artifact. LEFT VENTRICLE: Quantitative LVEF 33 %. LV cavity is moderately enlarged.LV systolic function is moderately decreased globally. There is no LV mass/thrombus. VIABILITY: LV scar size is 2 %. RIGHT VENTRICLE: Quantitative RVEF 50 %. RV wall thickness is normal. RVcavity size is normal. RV systolic function is normal. There is no RV mass/thrombus. LV/RV SEPTUM: The LV/RV septum is normal. LEFT ATRIUM: LA is severely enlarged. RIGHT ATRIUM: RA is moderately enlarged. PERICARDIUM: Pericardium is normal. There is no pericardial effusion.There are no signs of increased intrapericardial pressures. PLEURAL EFFUSION: There is no pleural effusion. AORTIC VALVE: Aortic valve leaflets are normal. There is no aorticstenosis. MITRAL VALVE: Mitral valve leaflets are normal. There is mild mitralregurgitation. Unable to accurately quantify valve disease due to gating artifact in the setting of arrythmia and use of realtime imaging. TRICUSPID VALVE: Tricuspid valve leaflets are normal. There is mildtricuspid regurgitation. PULMONIC VALVE: Pulmonic valve leaflets are normal. AORTIC ROOT: maximal diameter 39 x 39 x 38 mm. OTHER FINDINGS: Proximal ascending aorta 37 x 37 mm. CORE EXAM ===== MEASUREMENTS ----- --- VOLUMETRIC ANALYSIS . . LV Reference RV Reference +------+--------+-----+ +-----+ + EDV ml 300 (109-191) 208 (105-205) ml/m^2 120 (60-95) 83 (56-101) ESV ml 201 (27-72) 105 (20-80) ml/m^2 80 (14-36) 42 (11-40) CO MASS g 156 (107-183) g/m^2 62 (57-90) SV ml 99 (73-129) 103 (71-139) ml/m^2 40 (40-64) 41 (37-69) EF % 33 (58-76) 50 (55-81) '------+--------+-----+ +-----+ ' LA DIMENSIONS (LV SYSTOLE) VOLUME: 116 ml VOLUME NORMALIZED: 46.4 ml/m^2 RA DIMENSIONS (RV SYSTOLE) VOLUME: 96 ml VOLUME NORMALIZED: 38.4 ml/m^2 EXTRACELLULAR VOLUME MEASUREMENT ECV: 30 % 17 SEGMENT ----- --- . ----- ------. Segments Wall Motion Hyperenhancement Stress Perfusion Interpretation + + + + +----- ----- ------+ Base Anterior Severe Hypo None Base Anteroseptal Severe Hypo 1-25% Base Inferoseptal Severe Hypo 1-25% Base Inferior Severe Hypo None Base Inferolateral Severe Hypo None Base Anterolateral Severe Hypo None Mid Anterior Severe Hypo None Mid Anteroseptal Severe Hypo 1-25% Mid Inferoseptal Severe Hypo None Mid Inferior Severe Hypo None Mid Inferolateral Severe Hypo None Mid Anterolateral Severe Hypo None Apical Anterior Severe Hypo None Apical Septal Severe Hypo None Apical Inferior Severe Hypo None Apical Lateral Severe Hypo None [place] Severe Hypo None + + + + +----- ----- ------+ RV Segments Wall Motion Hyperenhancement Interpretation + + + + +----- ----- ------+ RV Basal Anterior Normal/Hyper None RV Basal Inferior Normal/Hyper None RV Mid Normal/Hyper None RV Apical Normal/Hyper None ' + + + +----- ----- ------' FINDINGS LV SCAR SIZE (17 SEGMENT): 2 % SCAN INFO ===== GENERAL ----- --- SCANNER REACTOR TECHNICIAN: SIEMENS MODEL: Aera CONTRAST AGENT TYPE: Gadavist GD CONCENTRATION: 1.0 M SETUP REFERRING PHYSICIAN: HARLAN CURTSI ATTENDING PHYSICIAN: HARLAN CURTIS BILLING ===== Patient Account [id number] ICD10 Codes I48.3, I50.22 Report generated by [employer], a product of [employer] us Harlan Curtis MD MR Final Resul t * ISTAT CHEM 8 (10/27/2024 12:26 PM CDT) SODIUM, POCT 10/28/2024 6:28 AM CDT [facility] Comment:Unable to determine. POTASSIUM, POCT 10/28/2024 6:28 AM CDT [facility] Comment:Unable to determine. CHLORIDE, POCT 10/28/2024 6:28 AM CDT [facility] Comment:Unable to determine. CO2,TOTAL, POCT 10/28/2024 6:28 AM CDT [facility] Comment:Unable to determine. ANION GAP, POCT 10/28/2024 6:28 AM CDT [facility] Comment:Unable to calculate. GLUCOSE, POCT 10/28/2024 6:28 AM CDT [facility] Comment:Unable to determine. IONIZED CALCIUM, POCT 10/28/2024 6:28 AM CDT [facility] Comment:Unable to determine. BUN, POCT 10/28/2024 6:28 AM CDT [facility] Comment:Unable to determine. CREATININE, POCT 10/28/2024 6:28 AM CDT [facility] Comment:Unable to determine. BUN/CREAT RATIO, POCT 10/28/2024 6:28 AM CDT [facility] Comment:Unable to calculate. eGFR 10/28/2024 6:28 AM CDT [facility] Comment:Unable to calculate. HEMATOCRIT, POCT 42.0 37.0 - 53.0 % 10/28/2024 6:28 AM CDT [facility] HEMOGLOBIN, POCT 14.3 13.5 - 17.5 g/dL 10/28/2024 6:28 AM CDT [facility] Blood BLOOD SPECIMEN / Unknown 10/27/2024 12:26 PM CDT 10/28/2024 6:28 AM CDT us Doctor Unknown CHEMISTRY Final Result [facility] [address] [place] [address], [place] * (ABNORMAL) BASIC METABOLIC PANEL (10/27/2024 12:05 PM CDT) Only the most recent of2 resultswithin the time period is included. SODIUM 141 136 - 145 mmol/L 10/27/2024 12:35 PM CDT [facility] POTASSIUM 4.2 3.5 - 5.1 mmol/L 10/27/2024 12:35 PM CDT [facility] CHLORIDE 100 98 - 107 mmol/L 10/27/2024 12:35 PM CDT [facility] CO2,TOTAL 29 22 - 29 mmol/L 10/27/2024 12:35 PM CDT [facility] ANION GAP 12 5 - 18 10/27/2024 12:35 PM CDT [facility] GLUCOSE 100(H) 70 - 99 mg/dL 10/27/2024 12:35 PM CDT [facility] CALCIUM 8.9 8.8 - 10.4 mg/dL 10/27/2024 12:35 PM CDT [facility] Comment: Reference ranges for this test were updated on 06/01/2024 to reflect our healthy population more accurately. Reference range changes are not retroactively applied to results, but previous results using the same methodology can be interpreted in the context of the new reference range. BUN 21 8 - 23 mg/dL 10/27/2024 12:35 PM CDT [facility] CREATININE 1.11 0.70 - 1.20 mg/dL 10/27/2024 12:35 PM CDT [facility] BUN/CREAT RATIO 19 10 - 20 12:35 PM CDT [facility] eGFR 73(L) >90 mL/min/1. 73m2 10/27/2024 12:35 PM CDT [facility] Comment:As of 2021, eG FR is calculated by the CKD-EPI creatinine equation without race adjustment. eGFR can be influenced by muscle mass, exercise, and diet. The reported eGFR is an estimation only and is only applicable if the renal function is stable. Blood BLOOD SPECIMEN / Unknown Venipuncture / Unknown 10/27/2024 12:05 PM CDT 10/27/2024 12:05 PM CDT us Tiffany Chahal [facility] CHEMISTR[facility] Final Resu lt [facility] [address] [place] [address], [place] from Last 3 Months Insurance [employer]VANTAGE MR [employer] MR WORKERS COMP Advance Directives * Full Code (Latest Code Status on File) Date Activated Date Inactivated Comments 05/26/2024 8:24 PM 05/27/2024 3:01 PM Question Answer Comments Code Status Discussion: Reviewed Preferences * Full Code Date Activated Date Inactivated Comments 05/17/2024 11:18 AM 05/17/2024 5:07 PM Question Answer Comments Code Status Discussion: Unable to Assess Preferences, Provider to review later Care Teams Vacuum Conditioner Operator Relationship Specialty Start Date End Date Trav Hayes MD [address] [place] [address] PCP - General Family Practice 05/03/24 Clinic, [facility] [address] [address] Cardiology - CHF 08/23/24
--- NOTE | 2025-01-05 10:14 | CRLHL7_ITS ---
For Patients: As a result of the Century Cures Act, medical imaging exams and procedure reports are released immediately into your electronic medical record. You may view this report before your referring provider. If you have questions, please contact your health care provider. INDICATION: Facial pressure TECHNIQUE: CT sinus without contrast. COMPARISON: None. FINDINGS: Frontal sinuses: Clear. Ethmoid sinuses: Trace mucosal thickening. Maxillary sinuses: Mucous retention cyst right maxillary sinus measuring 7 millimeters. Trace mucosal thickening near the right ostiomeatal unit. Sphenoid sinus: Trace mucosal thickening. Nasal cavity: Rightward deviation of the nasal septum. Bilateral yecenia bullosa, greater on the left. Other: Orbits unremarkable. Nasopharynx is patent. IMPRESSION: Modest mucosal thickening paranasal sinuses, no evidence of acute sinusitis. Please note that all CT scans at this facility use dose modulation, iterative reconstruction, and/or weight-based dosing when appropriate to reduce radiation dose to as low as reasonably achievable. Dictated by Dionte Hays MD @ 01/05/2025 11:56:42 AM (Electronically Signed)
--- NOTE | 2025-01-05 10:14 | CRLHL7_ITS ---
For Patients: As a result of the Cures Act, medical imaging exams and procedure reports are released immediately into your electronic medical record. You may view this report before your referring provider. If you have questions, please contact your health care provider. INDICATION: Weakness. TECHNIQUE: Chest 1 view(s) COMPARISON: Chest radiograph dated 04/21/2024. FINDINGS: Cardiomediastinal silhouette and pulmonary vasculature are normal. No focal consolidation. No significant layering pleural effusion. No pneumothorax. No acute chest wall abnormality. IMPRESSION: No focal consolidation. Dictated by Yeu Jurado MD @ 01/05/2025 12:15:52 PM (Electronically Signed)
--- NOTE | 2025-01-05 10:17 | ED.GENADULT ---
HPI - General Adult General Chief complaint: Weakness Stated complaint: Weakness Time Seen by Provider: 01/05/25 10:03 History of Present Illness HPI narrative: Patient is a 69 year white male with chronic heart failure, who scheduled for a implanted defibrillator/pacemaker the end of December. He has been weak for the last couple of weeks, had a slight cough for the last couple of weeks. Has not had much swelling or edema. He has lost about 100 lb over the last year intentionally. He has history of hypertension, he is on Eliquis for presumed paroxysmal atrial fibrillation although since his last ablation he has not apparently had atrial fibrillation. He has had elevated BMI. He has had no dysuria frequency. He does report some sinus pressure in his face that he has had over the last couple of weeks. He has had vomiting a couple times a day with the eating. No real abdominal pain. He has not had any blood in his vomitus, he has felt somewhat weak. His blood pressure is about 90 systolic. Reports he has not taken much fluid recently. He has not had history of ulcer, or GI issues. Related Data Home Medications ?Medication ?Instructions ?Recorded ?Confirmed torsemide 20 mg tablet 20 mg PO DAILY 01/05/25 01/05/25 Previous Rx's ?Medication ?Instructions ?Recorded lisinopril 5 mg tablet 5 mg PO DAILY #90 tabs 05/21/24 metformin 750 mg tablet,extended 1,500 mg (2 x 750 mg) PO HS #180 05/31/24 release 24 hr tabs metoprolol succinate 50 mg 50 mg PO QDAY #90 tabs 05/31/24 tablet,extended release 24 hr rosuvastatin 20 mg tablet 20 mg PO QPM #90 tabs 05/31/24 spironolactone 25 mg tablet 25 mg PO DAILY #90 tabs 05/31/24 apixaban 5 mg tablet (Eliquis) 5 mg PO BID #60 tabs 06/16/24 Allergies Allergy/AdvReac Type Severity Reaction Status Date / Time No Known Drug Allergies Allergy Verified 01/05/25 09:36 Review of Systems Status of ROS: Reports: 6 or more systems reviewed and unremarkable except as noted in History and below [facility] Medical History Acute hypoxemic respiratory failure ?J96.01 - Acute respiratory failure with hypoxia (ICD-10) Surgical History H/O varicose vein ligation and stripping ?Z98.890 - Other specified postprocedural states (ICD-10) Status post arthroscopy of right knee (04/17/12) ?Z98.890 - Other specified postprocedural states (ICD-10) Social History Narrative: Lives with ( would be medical decision maker if needed) locally, 3 adult children. Works for [employer]. Former smoker, no concerning ETOH use. Requests Full Code Status. What is your current living situation?: I presently have a place to live Problems where you live: no known problems Problems where you live details: NA In the past 12 months, utilities in danger of being shut off: no In past 12 months, lack of transportation kept you from medical appts, meetings, work, or getting things needed for daily living: no In the past 12 mos, have been you worried that your food would run out before you had money to buy more?: never true In the past 12 mos, the food you bought just didn't last and you didn't have money to buy more?: never true Highest level of school completed/degree received: 12th grade, no diploma Smoking Status: Former smoker How often do you have a drink containing alcohol: never How often do you have six or more drinks on one occasion: Never AUDIT-C Alcohol total score: 0 Non-prescribed substance use: denies use How often does anyone, including family, friends and others, physically hurt you: never How often does anyone, including family, friends and others, insult or talk down to you: never How often does anyone, including family, friends and others, threaten you with harm: never How often does anyone, including family, friends and others, scream or curse at you: never Exam Narrative: Exam Narrative: Objective: Patient's vital signs show systolic blood pressure 91, afebrile, O2 sat 90% on room air Alert orient x3 no distress, no cyanosis, his conjunctiva looks somewhat pale. No facial asymmetry, no scleral icterus Neck is supple Chest clear no rales or wheezing Heart rate and rhythm regular with 2/6 systolic murmur occasional ectopic beat Abdomen obese benign nontender Extremities are no edema neurologic nonfocal Neuro skin is warm and dry in the periphery. Const: Vital Signs, click to edit/add: Vital Signs - 24 hr 01/05/25 09:36 01/05/25 09:45 01/05/25 10:03 Temperature 96.8 F L Pulse Rate 64 Pulse Rate [Pulse Oximeter] 59 L Respiratory Rate 22 16 Blood Pressure 89/50 L Blood Pressure [Ri ght Upper Arm] 91/53 L Pulse Oximetry 98 97 99 Oxygen Delivery Me thod Room Air Fraction of Inspir ed Oxygen 01/05/25 10:32 01/05/25 11:02 01/05/25 11:45 Temperature Pulse Rate 65 62 Pulse Rate [Pulse Oximeter] Respiratory Rate 10 L Blood Pressure 85/45 L 93/45 L 123/88 Blood Pressure [Ri ght Upper Arm] Pulse Oximetry 98 99 Oxygen Delivery Me thod Fraction of Inspir ed Oxygen 01/05/25 11:48 01/05/25 12:09 01/05/25 12:10 Temperature Pulse Rate 60 63 64 Pulse Rate [Pulse Oximeter] Respiratory Rate Blood Pressure 86/50 L Blood Pressure [Ri ght Upper Arm] Pulse Oximetry 100 99 98 Oxygen Delivery Me thod Fraction of Inspir ed Oxygen 01/05/25 12:13 01/05/25 12:20 01/05/25 12:21 Temperature Pulse Rate 65 60 Pulse Rate [Pulse Oximeter] Respiratory Rate Blood Pressure 105/93 H Blood Pressure [Ri ght Upper Arm] Pulse Oximetry 100 100 Oxygen Delivery Me thod Room Air Fraction of Inspir ed Oxygen 0.21 01/05/25 12:30 01/05/25 12:45 01/05/25 12:47 Temperature Pulse Rate 63 64 53 L Pulse Rate [Pulse Oximeter] Respiratory Rate 12 9 L Blood Pressure 97/45 L 58/38 L Blood Pressure [Ri ght Upper Arm] Pulse Oximetry 100 99 99 Oxygen Delivery Me thod Fraction of Inspir ed Oxygen 01/05/25 12:50 01/05/25 12:53 01/05/25 13:00 Temperature Pulse Rate 55 L 68 53 L Pulse Rate [Pulse Oximeter] Respiratory Rate 16 5 L 15 Blood Pressure 79/39 L 72/41 L 77/42 L Blood Pressure [Ri ght Upper Arm] Pulse Oximetry 98 98 98 Oxygen Delivery Me thod Fraction of Inspir ed Oxygen 01/05/25 13:01 01/05/25 13:02 01/05/25 13:10 Temperature Pulse Rate 60 58 L 55 L Pulse Rate [Pulse Oximeter] Respiratory Rate 17 7 L 17 Blood Pressure 88/37 L 97/31 L Blood Pressure [Ri ght Upper Arm] Pulse Oximetry 98 98 100 Oxygen Delivery Me thod Fraction of Inspir ed Oxygen 01/05/25 13:15 Temperature Pulse Rate Pulse Rate [Pulse Oximeter] Respiratory Rate Blood Pressure 99/57 L Blood Pressure [Ri ght Upper Arm] Pulse Oximetry Oxygen Delivery Me thod Fraction of Inspir ed Oxygen Course Vital Signs Vital signs: Initial Vital Signs Temperature 96.8 F L 01/05/25 09:36 Temperature Source Temporal Artery Scan 01/05/25 09:36 Pulse Rate 59 L 01/05/25 09:36 Respiratory Rate 22 01/05/25 09:36 Blood Pressure 91/53 L 01/05/25 09:36 Blood Pressure Mean 65 L 01/05/25 09:36 Blood Pressure Position High-Fowlers 01/05/25 09:36 Pulse Oximetry 98 01/05/25 09:36 Oxygen Delivery Method Room Air 01/05/25 09:36 Vital Signs Temperature 96.8 F L 01/05/25 09:36 Pulse Rate 59 L 01/05/25 09:36 Respiratory Rate 22 01/05/25 09:36 Blood Pressure 91/53 L 01/05/25 09:36 Pulse Oximetry 98 01/05/25 09:36 Oxygen Delivery Method Room Air 01/05/25 09:36 Temperature 96.8 F L 01/05/25 09:36 Pulse Rate 55 L 01/05/25 13:10 Respiratory Rate 17 01/05/25 13:10 Blood Pressure 99/57 L 01/05/25 13:15 Pulse Oximetry 100 01/05/25 13:10 Oxygen Delivery Method Room Air 01/05/25 12:13 Fraction of Inspired Oxygen 0.21 01/05/25 12:13 Medications Administered Medications: Discontinued Medications Generic Name Dose Route Start Last Admin Trade Name Freq PRN Reason Stop Dose Admin Sodium Chloride 500 mls @ 500 mls/hr 01/05/25 10:14 01/05/25 13:16 0.9 % Sodium Chloride 500 Ml IV 01/05/25 11:13 Infused .Q1H ONE Infusion Sodium Chloride 1,000 mls @ 6,000 mls/hr 01/05/25 11:00 01/05/25 12:43 0.9 % Sodium Chloride 1000 Ml IV 01/05/25 11:09 Infused .Q10M LEAH Infusion Piperacillin Sod/Tazobactam 100 mls @ 200 mls/hr 01/05/25 10:48 01/05/25 12:09 Sod 3.375 gm/ Sodium Chloride IVPB 01/05/25 10:49 Infused ONCE ONE Infusion Vancomycin/PEG/NADA/Lysine/Water 1.25 gm in 250 mls @ 200 mls/hr 01/05/25 11:30 01/05/25 13:05 Vancomycin 1.25 Gm/250 Ml IVPB 01/05/25 12:44 Infused ONCE ONE Infusion Sodium Bicarbonate 150 meq/ 1,150 mls @ 150 mls/hr 01/05/25 11:45 01/05/25 12:09 Dextrose IV 150 mls/hr .Q7H40M LEAH Administration Norepinephrine/Dextrose 4,000 mcg in 250 mls @ 45.926 mls/hr 01/05/25 12:59 01/05/25 13:10 Norepinephrine Infusion IVPB 0.15 mcg/kg/min CONT LEAH 68.89 mls/hr Protocol Titration 0.1 MCG/KG/MIN Sodium Chloride 1,000 mls @ 1,000 mls/hr 01/05/25 13:00 01/05/25 13:05 0.9 % Sodium Chloride 1000 Ml IV 01/05/25 13:59 1,000 mls/hr .Q1H LEAH Administration IV Miscellaneous Supplies 1 each 01/05/25 10:50 01/05/25 11:15 Pharmacist Consult MC 1 each Q24H LEAH Administration Protocol Lidocaine HCl 6 ml 01/05/25 11:07 01/05/25 12:31 Lidocaine Hcl 2 % Jelly (Top) Sterile TOPICAL 01/05/25 11:08 6 ml ONCE ONE Administration Ondansetron HCl 4 mg 01/05/25 10:14 01/05/25 10:32 Ondansetron 2 Mg/Ml Inj IVP 01/05/25 10:15 4 mg ONCE ONE Administration Pantoprazole Sodium 40 mg 01/05/25 10:19 01/05/25 10:32 Pantoprazole Sodium 40 Mg Inj IVP 01/05/25 10:20 40 mg ONCE ONE Administration Medical Decision Making MDM Narrative Medical decision making narrative: [age] year white male with chronic heart failure, ablation for AFib, scheduled for an implant AICD placement into the month, presents with nausea vomiting over last couple of weeks. No abdominal pain, patient certainly could have an element of dehydration. Could have early gastritis. 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 Disposition pending findings and his response to IV fluid and findings on imaging. I think for completeness will also CT his abdomen pelvis. Importantly I will not give the 30 mL/kilos given the patient's cardiac history. I do not he can tolerate that volume, will give him a couple L of fluid. Will start IV antibiotics after blood cultures have been drawn. He will need transfer to tertiary care because of his creatinine that is markedly elevated at 7.7. He still making urine. Will discuss with [facility] regarding transfer. Given the patient could have an element of sepsis as well he was started on Zosyn and vancomycin. His lactate is minimally elevated. Again the fluid I think will titrate to effect, but I do not want who given his cardiac history to give him too much at this time which would be less than 30 per kilos. Will also put a Hernandez in just to make sure does not obstructive nephropathy. Addendum 11:[address] Newman mass communications professor at [facility], he agrees with transfer. Antibiotics have been started, the patient will get an IV bicarb drip as well. Agrees to accept to medical ICU. We will arrange transfer through our ambulance service. Transfer sheets completed. Patient is in stable condition for transfer. We will have norepinephrine available for transfer, will also start a bicarb drip. Patient Addendum 1:00 p.m. the patient's blood pressure systolic was about 70-80. He will be started on nor epi drip, the patient will continue to get IV fluid. Will call [facility] again regarding transfer. We had been on a delay. Will try and make him is acute as possible. I think given they nature the patient's renal failure, his hypotension. His re-evaluation status. His elevated lactate. I think he is a critical care time for 140 minutes. We moved him to eat more urgent transfer to [facility] they have accepted and he will be transferred via ALS ambulance. He is in stable condition for transfer. Lab Data Labs: Lab Results 01/05/25 01/05/25 01/05/25 Range/Units 09:43 10:15 10:28 WBC 19.22 H (4.50-11.00) K/uL RBC 4.19 L (4.30-5.90) m/uL Hgb 12.3 L (13.5-17.5) gm/dL Hct 36.7 L (37.0-53.0) % MCV 88 (80-100) fL MCH 29 (26-34) pg MCHC 34 (32-36) gm/dL RDW Coeff of Dinah 15.7 H (11.5-15.5) % Plt Count 304 (140-440) K/uL Neut % (Auto) 89.5 H (42.0-72.0) % Lymph % (Auto) 6.1 L (20-44) % Clarke % (Auto) 3.8 (0.0-11.0) % Eos % (Auto) 0.3 (0.0-7.0) % Baso % (Auto) 0.1 (0.0-3.0) % Neut # (Auto) 17.20 H (1.7-7.0) K/uL Lymph # (Auto) 1.20 (0.90-2.90) K/uL Clarke # (Auto) 0.70 (0.00-0.90) K/UL Eos # (Auto) 0.10 (0.00-0.50) K/uL Baso # (Auto) 0.00 (0.00-0.30) K/uL Abs Immat Gran (auto) 0.00 (0.00-0.30) K/uL Imm/Tot Granulo (auto) 0.2 % ABG pH 7.22 L* (7.35-7.45) ABG pCO2 25 L (35-45) mmHG ABG pO2 90.5 (80-105) mmHG ABG HCO3 10 L (21-28) mmol/L ABG Total CO2 10 L (21-30) mmol/l ABG O2 Saturation 97 (92-100) % ABG Base Excess -15.8 L (-3.0-3.0) mmol/L VBG pH 7.191 L* (7.32-7.43) VBG pCO2 39 L (40-50) mmHG VBG pO2 < 30.1 (25-47) mmHG VBG HCO3 15 L (21-28) mmol/L Sodium 137 (135-149) mmol/L Potassium 5.4 H (3.6-5.1) mmol/L Chloride 99 (96-114) mmol/L Carbon Dioxide 12 L (20-32) mmol/L Anion Gap 26 H (7-15) mEq/L BUN 158 H (7-30) mg/dL Creatinine 7.7 H (0.5-1.5) mg/dL Estimated Creat Clear 9.92 Estimated GFR 7 ml/min Glucose 97 (60-115) mg/dL Lactate 2.2 H (0.5-1.9) mmol/L Calcium 8.8 (8.4-10.6) mg/dL Total Bilirubin 1.9 H (0.1-1.5) mg/dL Direct Bilirubin 0.2 (0.0-0.5) mg/dL AST 23 (12-35) U/L ALT 29 (4-50) U/L Alkaline Phosphatase 70 (40-150) U/L NT-Pro-B Natriuret Pep 1330 H (See Note) pg/mL Total Protein 7.4 (6.0-8.3) g/dL Albumin 4.6 (3.3-5.0) g/dL Urine Color (Yellow) Urine Appearance (Clear) Urine pH (5.0-8.5) Ur Specific [place] (1.000-1.030) Urine Protein (Negative) Urine Glucose (UA) (Negative) Urine Ketones (Negative) Urine Blood (Negative) Urine Nitrite (Negative) Urine Bilirubin (Negative) Urine Urobilinogen (0.2-1.0) Ur Leukocyte Esterase (Negative) Urine RBC (0-2) Urine WBC (0-5) Ur Squamous Epith Cells (None-Few) Urine Bacteria (None) SARS-CoV-2 (PCR) Negative SARS-CoV-2 (Negative) Influenza Type A (PCR) Negative PCR FLU A (Negative) Influenza Type B (PCR) Negative PCR FLU B (Negative) RSV (PCR) Negative PCR RSV (Negative) POC Troponin I 0.00 L (0.01-0.04) ng/ml 01/05/25 Range/Units 12:50 WBC (4.50-11.00) K/uL RBC (4.30-5.90) m/uL Hgb (13.5-17.5) gm/dL Hct (37.0-53.0) % MCV (80-100) fL MCH (26-34) pg MCHC (32-36) gm/dL RDW Coeff of Dinah (11.5-15.5) % Plt Count (140-440) K/uL Neut % (Auto) (42.0-72.0) % Lymph % (Auto) (20-44) % Clarke % (Auto) (0.0-11.0) % Eos % (Auto) (0.0-7.0) % Baso % (Auto) (0.0-3.0) % Neut # (Auto) (1.7-7.0) K/uL Lymph # (Auto) (0.90-2.90) K/uL Clarke # (Auto) (0.00-0.90) K/UL Eos # (Auto) (0.00-0.50) K/uL Baso # (Auto) (0.00-0.30) K/uL Abs Immat Gran (auto) (0.00-0.30) K/uL Imm/Tot Granulo (auto) % ABG pH (7.35-7.45) ABG pCO2 (35-45) mmHG ABG pO2 (80-105) mmHG ABG HCO3 (21-28) mmol/L ABG Total CO2 (21-30) mmol/l ABG O2 Saturation (92-100) % ABG Base Excess (-3.0-3.0) mmol/L VBG pH (7.32-7.43) VBG pCO2 (40-50) mmHG VBG pO2 (25-47) mmHG VBG HCO3 (21-28) mmol/L Sodium (135-149) mmol/L Potassium (3.6-5.1) mmol/L Chloride (96-114) mmol/L Carbon Dioxide (20-32) mmol/L Anion Gap (7-15) mEq/L BUN (7-30) mg/dL Creatinine (0.5-1.5) mg/dL Estimated Creat Clear Estimated GFR ml/min Glucose (60-115) mg/dL Lactate (0.5-1.9) mmol/L Calcium (8.4-10.6) mg/dL Total Bilirubin (0.1-1.5) mg/dL Direct Bilirubin (0.0-0.5) mg/dL AST (12-35) U/L ALT (4-50) U/L Alkaline Phosphatase (40-150) U/L NT-Pro-B Natriuret Pep (See Note) pg/mL Total Protein (6.0-8.3) g/dL Albumin (3.3-5.0) g/dL Urine Color Yellow (Yellow) Urine Appearance Clear (Clear) Urine pH 5.5 (5.0-8.5) Ur Specific [place] 1.015 (1.000-1.030) Urine Protein Trace A (Negative) Urine Glucose (UA) Negative (Negative) Urine Ketones Negative (Negative) Urine Blood Negative (Negative) Urine Nitrite Negative (Negative) Urine Bilirubin Negative (Negative) Urine Urobilinogen 0.2 (0.2-1.0) Ur Leukocyte Esterase Negative (Negative) Urine RBC 0-2 (0-2) Urine WBC 0-2 (0-5) Ur Squamous Epith Cells Few (None-Few) Urine Bacteria None (None) SARS-CoV-2 (PCR) (Negative) Influenza Type A (PCR) (Negative) Influenza Type B (PCR) (Negative) RSV (PCR) (Negative) POC Troponin I (0.01-0.04) ng/ml Critical Care Time Critical Care Time Total Critical Care Time in Minutes: 140 Discharge Plan Discharge Clinical Impression: Acute renal failure Patient Disposition: [facility] Condition: Stable Additional Instructions: Transfer for tertiary care. Prescriptions: No Action lisinopril 5 mg tablet 5 mg PO DAILY Qty: 90 3RF metformin 750 mg tablet extended release 24 hr 1,500 mg PO HS Qty: 180 3RF Rx Instructions: Keep on file metoprolol succinate 50 mg tablet extended release 24 hr 50 mg PO QDAY Qty: 90 3RF rosuvastatin 20 mg tablet 20 mg PO QPM Qty: 90 3RF spironolactone 25 mg tablet 25 mg PO DAILY Qty: 90 3RF Rx Instructions: Please fill THIS Rx (25mg daily) torsemide 20 mg tablet 20 mg PO DAILY Eliquis 5 mg tablet 5 mg PO BID Qty: 60 5RF Stand Alone Forms: [facility] Info Instructions
--- NOTE | 2025-01-05 10:21 | CRLHL7_ITS ---
For Patients: As a result of the Century Cures Act, medical imaging exams and procedure reports are released immediately into your electronic medical record. You may view this report before your referring provider. If you have questions, please contact your health care provider. INDICATION: Vomiting TECHNIQUE: Axial images were obtained from the diaphragm to the pubic symphysis. Reformats were obtained in the coronal and sagittal plane. IV Contrast: None Oral Contrast: None COMPARISON: None. FINDINGS: Lower chest: Basilar discoid atelectasis. Coronary atherosclerosis. Liver: Normal in contour with mildly decreased density of the liver diffusely. Gallbladder and bile ducts: Unremarkable. No stones or inflammation. No biliary dilatation. Spleen: Unremarkable. Normal in size without mass. Pancreas: Mild pancreatic atrophy. Adrenal glands: Unremarkable. No nodules. Kidneys: Unremarkable. No masses, stones, or hydronephrosis. Vasculature: Atherosclerosis without abdominal aortic aneurysm. GI tract: The stomach is unremarkable. No dilated loops of large or small intestine. Colonic diverticulosis. Pelvis: Unremarkable. Bones: Unremarkable for age. IMPRESSION: 1. Colonic diverticulosis without CT evidence of diverticulitis. 2. Mild hepatic steatosis. Please note that all CT scans at this facility use dose modulation, iterative reconstruction, and/or weight-based dosing when appropriate to reduce radiation dose to as low as reasonably achievable. Dictated by Dionte Hays MD @ 01/05/2025 11:59:34 AM (Electronically Signed)
[2025-01-05 10:22] LABS: HCO3 VBG 15 mmol/L (21-28); Lactate* 2.2 mmol/L (0.5-1.9); PCO2 VBG 39 mmHG (40-50); PO2 VBG < 30.1 mmHG (25-47); pH VBG 7.191 (7.32-7.43)
[2025-01-05 10:25] LABS: Albumin* 4.6 g/dL (3.3-5.0); Chloride* 99 mmol/L (96-114); Potassium* 5.4 mmol/L (3.6-5.1); Sodium* 137 mmol/L (135-149)
[2025-01-05 10:28] LABS: Alanine Aminotransferase* 29 U/L (4-50); Alkaline Phosphatase* 70 U/L (40-150); Anion Gap 26 mEq/L (7-15); Aspartate Amino Transferase* 23 U/L (12-35); Bilirubin Direct* 0.2 mg/dL (0.0-0.5); Bilirubin Total* 1.9 mg/dL (0.1-1.5); Calcium* 8.8 mg/dL (8.4-10.6); Carbon Dioxide* 12 mmol/L (20-32); Creatinine* 7.7 mg/dL (0.5-1.5); Est. Creatinine Clearance* 9.92; Estimated Glomerular Filt Rate 7 ml/min; Glucose* 97 mg/dL (60-115); Total Protein* 7.4 g/dL (6.0-8.3)
[2025-01-05 10:32] LABS: Basophils Percent Auto 0.1 % (0.0-3.0); Eosinophils Percent Auto 0.3 % (0.0-7.0); Hematocrit* 36.7 % (37.0-53.0); Hemoglobin* 12.3 gm/dL (13.5-17.5); Immature Granulocytes Pct Auto 0.2 %; Lymphocytes Percent Auto 6.1 % (20-44); Mean Corpuscular HGB Conc 34 gm/dL (32-36); Mean Corpuscular Hemoglobin 29 pg (26-34); Mean Corpuscular Volume 88 fL (80-100); Monocytes Percent Auto 3.8 % (0.0-11.0); Neutrophils Percent Auto 89.5 % (42.0-72.0); Platelet Count* 304 K/uL (140-440); RDW Coefficient of Variation % 15.7 % (11.5-15.5); Red Blood Count* 4.19 m/uL (4.30-5.90); White Blood Count* 19.22 K/uL (4.50-11.00)
[2025-01-05] MEDS: PANTOPRAZOLE SODIUM 40 MG INJ IVP (10:32)
[2025-01-05] MEDS: ONDANSETRON 2 MG/ML inj 4 MG IVP (10:32)
[2025-01-05] MEDS: 0.9 % SODIUM CHLORIDE 1000 ml 1,000 ML 6000 ML IV (10:35)
[2025-01-05 10:40] LABS: Slide Review Reflex No
[2025-01-05 10:41] LABS: Blood Urea Nitrogen* 158 mg/dL (7-30); NT Pro B Type NatriureticPept* 1330 pg/mL (See Note)
[2025-01-05] MEDS: PIPERACILLIN/TAZOBACTAM 3.375 GM in 0.9 % SODIUM CHLORIDE Mini-bag 100 ML IVPB (11:33)
[2025-01-05 11:35] LABS: PCR FLU A Negative PCR FLU A (Negative); PCR FLU B Negative PCR FLU B (Negative); PCR RSV Negative PCR RSV (Negative); SARS PCR* Negative SARS-CoV-2 (Negative)
[2025-01-05] MEDS: VANCOMYCIN 1.25 GM/250 ML 1.25 GM/250 ML PIGGYBACK IVPB (11:45)
[2025-01-05 12:08] LABS: ABG PCO2 25 mmHG (35-45); Base Excess ABG -15.8 mmol/L (-3.0-3.0); HCO3 ABG 10 mmol/L (21-28); Oxygen Saturation ABG 97 % (92-100); PO2 ABG 90.5 mmHG (80-105); TCO2 ABG 10 mmol/l (21-30); pH ABG 7.22 (7.35-7.45)
--- NOTE | 2025-01-05 12:14 | RESP.RT ---
Lab called to obtain an ABG as they stated that their attempts were unsuccessful. ABG obtained under ultrasound from Right Radial artery.
[2025-01-05] MEDS: lidocaine HCL 2 % JELLY (TOP) STERILE 6 ML TOPICAL (12:31)
[2025-01-05] MEDS: 0.9 % SODIUM CHLORIDE 500 ML 500 ML IV (12:42)
[2025-01-05] MEDS: NORepinephrine INFUSION 4,000 MCG/250 ML PLAST..BAG 45.93 MCG IVPB (13:02)
[2025-01-05] MEDS: 0.9 % SODIUM CHLORIDE 1000 ml 1,000 ML IV (13:05)
[2025-01-05 13:07] LABS: Appearance Urine Clear (Clear); Bilirubin Urine Negative (Negative); Blood Urine Negative (Negative); Color Urine Yellow (Yellow); Glucose Urine Negative (Negative); Ketones Urine Negative (Negative); Leukocyte Esterase Urine Negative (Negative); Nitrite Urine Negative (Negative); Protein Urine Trace (Negative); Specific Gravity Urine 1.015 (1.000-1.030); Urobilinogen Urine 0.2 (0.2-1.0); pH Urine 5.5 (5.0-8.5)
[2025-01-05 13:19] LABS: RBC Urine 0-2 (0-2); Squamous Epithelial Cell Urine Few (None-Few); WBC Urine 0-2 (0-5)
== END 2025-01-05 13:26 | disposition short-term general hospital (02) ==
PROVIDERS: Emergency Provider Family Medicine; PCP Family Medicine
DX: I48.0 Paroxysmal atrial fibrillation (principal); N17.9 Acute kidney failure, unspecified; R05.9 Cough, unspecified; I50.9 Heart failure, unspecified; Z79.01 Long term (current) use of anticoagulants
CPT/HCPCS: 36415; 36600; 70486; 71045; 74176; 80048; 80076; 81001; 82803; 83605; 83880; 84484; 85025; 87040; 87631; 93005; 94761; 99285; 99291; 99292; A0425; A0434; J2405; J2470; J2543; J3372; J7030; J7070

== ENCOUNTER 2025-01-05 13:11 | Outpatient (CLI) | payer OTHER, SELFPAY | END 2025-01-05 13:12 | disposition home or self-care (01) | LOC: AMB 01-07 09:07 | PROVIDERS: PCP Family Medicine; Visit Provider Family Medicine | DX: N17.9 Acute kidney failure, unspecified (principal) | CPT/HCPCS: A0425; A0434 ==

== ENCOUNTER 2025-07-13 09:30 | Outpatient (CLI) | payer OTHER, SELFPAY | END 2025-07-13 09:31 | disposition home or self-care (01) | PROVIDERS: PCP Family Medicine; Visit Provider Family Medicine | DX: D64.9 Anemia, unspecified (principal); I50.20 Unspecified systolic (congestive) heart failure; E78.5 Hyperlipidemia, unspecified; Z12.5 Encounter for screening for malignant neoplasm of prostate; Z13.29 Encounter for screening for other suspected endocrine disorder; Z13.21 Encounter for screening for nutritional disorder | CPT/HCPCS: 80053; 80061; 82607; 84443; G0103 ==